=== PATIENT | female | born 1995 ===

== ENCOUNTER 2020-02-03 17:32 | Outpatient (REF) | payer OTHER, MEDICAID, SELFPAY | END 2020-02-03 17:33 | disposition home or self-care (01) | LOC: HO.LAB 17:32 | PROVIDERS: Visit Provider Internal Medicine | DX: Z20.828 Contact with and (suspected) exposure to other viral communicable diseases (principal) | CPT/HCPCS: C9803; U0003 ==

== ENCOUNTER 2020-03-09 09:27 | Outpatient (REF) | payer OTHER, SELFPAY | END 2020-03-09 09:28 | disposition home or self-care (01) | LOC: HO.LAB 09:27 | PROVIDERS: PCP Internal Medicine; Visit Provider Internal Medicine | DX: Z20.828 Contact with and (suspected) exposure to other viral communicable diseases (principal) | CPT/HCPCS: C9803; U0003 ==

== ENCOUNTER 2020-03-17 09:19 | Outpatient (REF) | payer OTHER, SELFPAY ==
--- NOTE | 2020-03-17 09:24 | XR_ITS ---
EXAMINATION: XR CHEST CLINICAL INFORMATION: R43.0 - Anosmia COMPARISON: Chest radiographs 08/22/2017, 03/19/2017 TECHNIQUE: 2 views of the chest were obtained. FINDINGS: The lungs are clear. There is no airspace consolidation or groundglass opacity or effusion. The costophrenic sulci are clear. The heart is normal in size. The hilar and mediastinal contours and bony structures are unremarkable. XR/XR chest 2V IMPRESSION: Unremarkable examination.
[2020-03-17 11:21] LABS: MANUAL DIFF FLAG NO
[2020-03-17 11:25] LABS: Basophils Percent Auto 0.2 % (0-2); Eosinophils Absolute Auto 0.1 X10*3/uL (0.0-0.4); Eosinophils Percent Auto 0.6 % (0-4); Hematocrit 40.8 % (37-47); Hemoglobin 12.8 g/dl (12.0-16.0); Imm Gran Abs Auto 0.07 X10*3/uL (0.00-0.03); Imm Gran Pct Auto 0.9 % (0.0-0.4); Lymphocytes Absolute Auto 2.4 X10*3/uL (1.2-4.9); Lymphocytes Percent Auto 28.9 % (20-40); Mean Corpuscular HGB Conc 31.4 g/dl (31.0-35.0); Mean Corpuscular Hemoglobin 26.3 pg (27.0-33.0); Mean Corpuscular Volume 83.8 fL (80-98); Mean Platelet Volume 11.4 fL (9.4-12.3); Monocytes Absolute Auto 0.5 X10*3/uL (0.1-1.2); Monocytes Percent Auto 6.4 % (2-11); Neutrophils Absolute Auto 5.1 X10*3/uL (2.0-8.3); Platelet Count 329 X10*3/uL (160-400); Red Blood Count 4.87 X10*6/uL (4.20-5.50); Red Cell Distribution Width 13.6 % (11.0-16.0); White Blood Count 8.1 X10*3/uL (4.8-10.8)
[2020-03-17 11:46] LABS: Alanine Aminotransferase 13 U/L (0-31); Albumin Level 3.9 g/dL (3.5-5.0); Alkaline Phosphatase 77 U/L (39-117); Anion Gap 12 (12-20); Aspartate Amino Transferase 12 U/L (5-31); Bilirubin Total 0.4 mg/dL (0.0-1.0); Blood Urea Nitrogen 14 mg/dL (9-16); Calcium 9.3 mg/dL (8.4-10.2); Carbon Dioxide 27 mmol/L (22-29); Chloride 103 mmol/L (96-108); Cholesterol 159 mg/dL; Estimated Glomerular Filt Rate > 60; Glucose Fasting 101 mg/dL (60-99); HDL Cholesterol 41 mg/dL; LDL Cholesterol Calculated 87 mg/dl; Potassium 4.5 mmol/l (3.3-5.1); Sodium 137 mmol/L (135-145); Total Protein 6.8 g/dL (6.5-8.0); Triglycerides 155 mg/dL
[2020-03-17 12:09] LABS: TSH reflex Free T4 1.23 mIU/mL (0.32-4.0); Vitamin D 25-OH Total 7.6 ng/mL (>30)
== END 2020-03-17 09:20 | disposition home or self-care (01) ==
LOC: HO.HMGCX 09:19
PROVIDERS: PCP Internal Medicine; Visit Provider Internal Medicine
DX: U07.1 COVID-19 (principal); R43.0 Anosmia; E55.9 Vitamin D deficiency, unspecified; R73.01 Impaired fasting glucose; E66.9 Obesity, unspecified; R19.7 Diarrhea, unspecified; J02.9 Acute pharyngitis, unspecified; J98.8 Other specified respiratory disorders
CPT/HCPCS: 36415; 71046; 80053; 80061; 82306; 84443; 85025; 85027

== ENCOUNTER → 2020-05-19 09:57 | Outpatient (BNVA) | payer OTHER, SELFPAY | PROVIDERS: PCP Internal Medicine; Visit Provider Advanced Practice Midwife | DX: N92.3 Ovulation bleeding (principal); E66.9 Obesity, unspecified | CPT/HCPCS: 99202 ==

== ENCOUNTER → 2021-03-14 15:18 | Outpatient (BNVA) | payer OTHER, SELFPAY | PROVIDERS: PCP Internal Medicine; Referring Provider Internal Medicine; Visit Provider Physician Assistant Surgical ==

== ENCOUNTER → 2021-04-04 08:45 | Outpatient (BNVA) | payer OTHER, SELFPAY | PROVIDERS: PCP Internal Medicine; Visit Provider Surgery ==

== ENCOUNTER 2021-10-05 11:01 | Outpatient (REF) | payer OTHER, SELFPAY ==
[2021-10-05 19:13] LABS: CT PCR NOT DETECTED (Not Detect.); NG PCR NOT DETECTED (Not Detect.)
[2021-10-06 12:45] LABS: BV Int Neg Control Negative (Negative); BV Int Pos Control Positive (Positive)
[2021-10-09 23:27] LABS: HPV mRNA E6/E7 rflx Not Detected (Not Detected)
== END 2021-10-05 11:02 | disposition home or self-care (01) ==
LOC: HO.LAB 11:01
PROVIDERS: Visit Provider Advanced Practice Midwife
DX: Z01.419 Encounter for gynecological examination (general) (routine) without abnormal findings (principal); Z11.3 Encounter for screening for infections with a predominantly sexual mode of transmission; Z11.51 Encounter for screening for human papillomavirus (HPV)
CPT/HCPCS: 87480; 87491; 87510; 87591; 87624; 87660; 88142

== ENCOUNTER → 2022-02-26 13:54 | Outpatient (BNVA) | payer OTHER, SELFPAY | PROVIDERS: PCP Internal Medicine; Visit Provider Physician Assistant Surgical | DX: E66.01 Morbid (severe) obesity due to excess calories (principal); Z68.42 Body mass index [BMI] 45.0-49.9, adult | CPT/HCPCS: 99212 ==

== ENCOUNTER 2022-02-27 12:40 | Outpatient (REF) | payer OTHER, SELFPAY ==
--- NOTE | ~2022-02-27 | XR_ITS ---
EXAMINATION: XR CHEST CLINICAL INFORMATION: Obesity COMPARISON: 03/17/2020 TECHNIQUE: 2 views of the chest were obtained. FINDINGS: No focal consolidation, pulmonary edema, or pleural effusion. Stable cardiomediastinal silhouette. XR/XR chest 2V IMPRESSION: Unremarkable examination.
--- NOTE | 2022-02-27 12:46 | ECG_ITS ---
Test Reason : e66.01 Blood Pressure : / mmHG Vent. Rate : 088 BPM Atrial Rate : 088 BPM P-R Int : 130 ms QRS Dur : 066 ms QT Int : 364 ms P-R-T Axes : 058 028 013 degrees QTc Int : 440 ms Normal sinus rhythm Normal ECG When compared with ECG of 19-MAR-2017 07:07, No significant change was found Referred By: Rafat Garcia Electronically Signed By:Dominic Salas
[2022-02-27 12:56] LABS: MANUAL DIFF FLAG NO
[2022-02-27 13:27] LABS: Basophils Percent Auto 0.3 % (0-2); Eosinophils Absolute Auto 0.1 X10*3/uL (0.0-0.4); Eosinophils Percent Auto 1.4 % (0-4); Hematocrit 38.4 % (37.0-47.0); Hemoglobin 12.2 g/dl (12.0-16.0); Imm Gran Abs Auto 0.05 X10*3/uL (0.00-0.03); Imm Gran Pct Auto 0.5 % (0.0-0.4); Lymphocytes Absolute Auto 1.9 X10*3/uL (1.2-4.9); Lymphocytes Percent Auto 20.9 % (20-40); Mean Corpuscular HGB Conc 31.8 g/dl (31.0-35.0); Mean Corpuscular Hemoglobin 25.9 pg (27.0-33.0); Mean Corpuscular Volume 81.5 fL (80.0-98.0); Mean Platelet Volume 11.2 fL (9.4-12.3); Monocytes Absolute Auto 0.6 X10*3/uL (0.1-1.2); Monocytes Percent Auto 6.6 % (2-11); Neutrophils Absolute Auto 6.5 x10*3/uL (2.0-8.3); Neutrophils Percent Auto 70.3 % (45-73); Platelet Count 340 X10*3/uL (160-400); Red Blood Count 4.71 X10*6/uL (4.20-5.50); Red Cell Distribution Width 13.7 % (11.0-16.0); White Blood Count 9.3 X10*3/uL (4.8-10.8)
[2022-02-27 15:31] LABS: Alanine Aminotransferase 9 U/L (0-31); Albumin Level 3.9 g/dL (3.5-5.0); Alkaline Phosphatase 73 U/L (39-117); Anion Gap 11 (12-20); Aspartate Amino Transferase 10 U/L (5-31); Bilirubin Total 0.5 mg/dL (0.0-1.0); Blood Urea Nitrogen 8 mg/dL (9-16); C Reactive Protein 4.57 mg/dL (< or = 0.50); Calcium 9.3 mg/dL (8.4-10.2); Carbon Dioxide 25 mmol/L (22-29); Chloride 107 mmol/L (96-108); Cholesterol 147 mg/dL; Estimated Glomerular Filt Rate > 60; Glucose Fasting 88 mg/dL (60-99); Glucose Random 88 mg/dL (60-115); HDL Cholesterol 36 mg/dL; Iron 38 mcg/dL (30-160); LDL Cholesterol Calculated 85 mg/dl; Percent Iron Saturation 15 % (15-50); Potassium 4.4 mmol/L (3.3-5.1); Sodium 139 mmol/L (135-145); Total Iron Binding Capacity 257 mcg/dL (228-428); Total Protein 6.8 g/dL (6.5-8.0); Triglycerides 130 mg/dL; Unsaturated Iron Binding 219 ug/dL; Vitamin D 25-OH Total 9.6 ng/mL (>30)
[2022-02-27 16:12] LABS: Estimated Average Glucose 120 mg/dL; Hemoglobin A1c % 5.8 %
[2022-02-27 16:49] LABS: Ferritin 47 ng/mL (10-122); Insulin 12 uU/mL (2-29); TSH reflex Free T4 0.65 uIU/mL (0.32-4.0); Vitamin D 25-OH Total 9.5 ng/mL (>30)
[2022-02-27 17:04] LABS: Folate 8.3 ng/mL (> or = 4.0); Vitamin B12 519 pg/mL (200-900)
[2022-03-01 17:47] LABS: Calcium (PTHI) 9.5 mg/dL (8.6-10.2); PTHI 85 pg/mL (16-77)
[2022-03-02 14:47] LABS: H Pylori Breath Test Negative (Negative)
[2022-03-02 17:29] LABS: Vitamin A 23 mcg/dL (38-98)
[2022-03-03 00:08] LABS: Zinc 66 mcg/dL (60-130)
[2022-03-12 05:09] LABS: Vitamin B1 <6 nmol/L (8-30)
== END 2022-02-27 12:41 | disposition home or self-care (01) ==
LOC: HO.XRAY 12:40
PROVIDERS: PCP Internal Medicine; Visit Provider Surgery
DX: E66.01 Morbid (severe) obesity due to excess calories (principal); R73.01 Impaired fasting glucose; E55.9 Vitamin D deficiency, unspecified; K21.9 Gastro-esophageal reflux disease without esophagitis; Z11.0 Encounter for screening for intestinal infectious diseases
CPT/HCPCS: 36415; 71046; 80053; 80061; 82306; 82607; 82728; 82746; 82947; 83013; 83036; 83525; 83540; 83970; 84425; 84443; 84590; 84630; 85025; 86140; 93005; 99211

== ENCOUNTER → 2022-03-16 15:04 | Outpatient (BNVA) | payer OTHER, SELFPAY | PROVIDERS: PCP Internal Medicine; Visit Provider Dietitian, Registered | DX: E66.01 Morbid (severe) obesity due to excess calories (principal); Z68.41 Body mass index [BMI] 40.0-44.9, adult | CPT/HCPCS: 97802 ==

== ENCOUNTER → 2022-03-21 15:25 | Outpatient (BNVA) | payer OTHER, SELFPAY | PROVIDERS: PCP Internal Medicine; Visit Provider Physician Assistant Surgical | DX: E66.01 Morbid (severe) obesity due to excess calories (principal) | CPT/HCPCS: 99212 ==

== ENCOUNTER → 2022-03-26 11:00 | Outpatient (BNVA) | payer OTHER, SELFPAY | PROVIDERS: PCP Internal Medicine; Visit Provider Counselor Mental Health | DX: F32.A Depression, unspecified (principal); E66.01 Morbid (severe) obesity due to excess calories | CPT/HCPCS: 90791 ==

== ENCOUNTER → 2022-05-24 13:35 | Outpatient (BNVA) | payer OTHER, SELFPAY | PROVIDERS: PCP Internal Medicine; Visit Provider Dietitian, Registered | DX: E66.01 Morbid (severe) obesity due to excess calories (principal); Z68.41 Body mass index [BMI] 40.0-44.9, adult; R73.01 Impaired fasting glucose; Z71.3 Dietary counseling and surveillance | CPT/HCPCS: 97803 ==

== ENCOUNTER 2023-03-30 07:34 | Emergency (ER) | payer OTHER, SELFPAY ==
--- NOTE | ~2023-03-30 | CT_ITS ---
EXAMINATION: CT abdomen pelvis w IV con CLINICAL INFORMATION: Reason for Exam RLQ abdominal pain, r/o acute appy COMPARISON: Prior CT scan 2018 TECHNIQUE: Multidetector volumetric imaging was performed from the superior aspect of the liver through the pubic symphysis 85 mL of Omnipaque 350 injected Sagittal and coronal reformatted images were obtained on the technologist's workstation. This CT examination was performed using dose optimization techniques as appropriate, variously including the following: *Automated exposure control *Adjustment of mA and/or kV according to patient size (this includes techniques or standardized protocols for targeted exams where dose is matched to indication/reason for exam; i.e. extremities or head) *Use of iterative reconstruction technique DLP: 860 mGy-cm FINDINGS: LOWER THORAX: Included lung bases are clear. HEPATOBILIARY: No focal hepatic lesions. No biliary ductal dilatation. GALLBLADDER: Gallbladder unremarkable. SPLEEN: Spleen is normal in size. PANCREAS: No focal mass or ductal dilatation. STOMACH AND GASTROINTESTINAL TRACT: Stomach is grossly unremarkable. There is no bowel distention or thickening. No CT evidence of appendicitis. ADRENALS: No adrenal nodules. KIDNEYS/URETERS: Mild right renal hydronephrosis and proximal hydroureter due to partially obstructing 3 mm stone found in the mid course right ureter image 58 series 6. Left kidney is normal. URINARY BLADDER: Partially decompressed. PELVIC VISCERA: Unremarkable PERITONEUM: No free air or fluid. LYMPH NODES: No lymphadenopathy. VASCULAR:Abdominal aorta normal in size, no aneurysm found. BONES, ABDOMINAL WALL AND SOFT TISSUES: Age-appropriate changes of the spine and skeletal system, no destructive osteolytic or osteosclerotic bone lesion found CT/CT abdomen pelvis w IV con IMPRESSION: 1. Mild right renal hydronephrosis and proximal hydroureter due to obstructing 3 mm stone found in the mid course right ureter. 2. No CT evidence of appendicitis.
--- NOTE | 2023-03-30 07:43 | ED.ABDPAIN ---
HPI - Abdominal Pain General Chief Complaint: Abdominal Pain Stated Complaint: r sided abd pain Time Seen by Provider: 03/30/23 07:39 Source: patient and family (fiance ) Mode of arrival: ambulatory Limitations: no limitations History of Present Illness HPI narrative: This is a 27-year-old female who is previously healthy who presents to the ER with complaints of waking with right-sided back pain which radiates to the right lower abdomen with 2 episodes of vomiting and diarrhea. No fevers, chills, urinary symptoms. Patient is currently on her menstrual cycle. Patient denies any history of abdominal surgery. Patient describes the pain as sharp and stabbing. Related Data Previous Rx's Medication Instructions Recorded cholecalciferol (vitamin D3) 125 125 mcg PO DAILY #90 caps 03/19/22 mcg (5,000 unit) capsule thiamine HCl (vitamin B1) 100 mg 100 mg PO DAILY #90 tabs 03/19/22 tablet vitamin A palmitate 3,000 mcg 10,000 unit PO DAILY #90 caps 03/19/22 (10,000 unit) capsule meloxicam 15 mg tablet 15 mg PO DAILY #14 tabs 07/09/22 ibuprofen 600 mg tablet 600 mg PO Q8H PRN pain #30 tabs 03/30/23 ondansetron 4 mg disintegrating 4 mg PO Q6H PRN nausea and 03/30/23 tablet vomiting #15 tabs oxycodone 5 mg tablet 5 mg PO Q8H PRN pain #6 tabs 03/30/23 tamsulosin 0.4 mg capsule (Flomax) 0.4 mg PO DAILY #14 caps 03/30/23 Allergies Allergy/AdvReac Type Severity Reaction Status Date / Time No Known Allergies Allergy Verified 03/30/23 07:46 Review of Systems Review of Systems Yes all other systems are reviewed and are negative Constitutional: Reports no additional constitutional complaints, Denies body ache(s), Denies chills, Denies fever(s), Denies headache(s) and Denies weakness Eyes: Reports no additional eye complaints and Denies change in vision Reports system reviewed and no additional complaints, except as documented, Denies dizziness, Denies headache(s), Denies nasal congestion, Denies nasal discharge and Denies neck pain Cardiovascular: Reports no additional cardiovascular complaints, Denies chest pain, Denies leg edema and Denies dyspnea Respiratory: Reports no additional respiratory complaints, Denies cough and Denies dyspnea Gastrointestinal: Reports no additional gastrointestinal complaints, Reports abdominal pain, Reports diarrhea, Reports nausea and Reports vomiting Genitourinary: Reports no additional female genitourinary complaints and Denies urinary incontinence Musculoskeletal: Reports no additional musculoskeletal complaints, Denies back pain, Denies arthralgias, Denies joint swelling, Denies neck pain, Denies numbness and Denies tingling Skin/Breast: Reports system reviewed and no additional complaints, except as docu and Denies rash Reports system reviewed and no additional complaints, except as documented, Denies Abnormal speech present, Denies dizziness, Denies headache(s), Denies numbness, Denies tingling and Denies weakness PMFSH Past Medical History Attestation statement: The following information was validated with the patient. Source: old records reviewed and nursing notes reviewed Onset Date is defined in the Problem List Problems that require an onset date and time if occurred within 24 hrs of arrival to the ED Aortic Dissection and Rupture; Neurologic impairment; Cardiopulmonary Arrest; Endotracheal Intubation; Insertion or Replacement of Mechanical Circulatory Assist Device Medical History Back pain Depression GERD (gastroesophageal reflux disease) Anxiety and depression Morbid obesity Anosmia Diarrhea Sore throat Respiratory tract infection due to COVID-19 virus Ovarian cyst Vitamin D deficiency Impaired fasting glucose History of migraine Obesity Surgical History H/O wisdom tooth extraction Family History Family History Father Diabetes mellitus Mother No problems noted. Brother No problems noted. Brother Multiple sclerosis Maternal Grandmother No problems noted. Maternal Grandfather No problems noted. Paternal Grandfather No problems noted. Paternal Grandmother No problems noted. Brother No problems noted. Social History Social History Housing: Apartment Alcohol intake: former Patient Tobacco Use Status: Never used Tobacco Smoked in Last 30 Days: No Use of substances other than those prescribed or required for medical reasons: No Substance Use Type: Marijuana Advance Directives: No Advance Directives Information Provided: No Patient : No service: No Current occupational status: employed Physical Exam ED Vital Signs: Vital Signs - 24 hr 03/30/23 07:46 03/30/23 10:34 Temperature 97.8 F 97.7 F Pulse Rate 88 61 Respiratory Rate 16 16 Blood Pressure 155/75 H 127/56 L Pulse Oximetry 99 100 Oxygen Delivery Method Room Air Room Air BMI result Body Mass Index 42.4 Const General: cooperative, healthy appearing, comfortable and no acute distress Orientation/consciousness: patient oriented x3 Limitations: no limitations HENMT Head: Yes normal to inspection Ears: hearing grossly normal bilaterally General nose exam: Normal external nose present Face and sinus: Yes normal facial exam Mouth: Normal oral and palatal mucosa present Throat: Yes posterior oropharynx normal Eyes General: appearance normal, both eyes and all related structures Pupils: Equal, round and reactive pupils present Neck Neck: Yes normal visual inspection Chest Chest palpation & inspection: normal inspection of the chest Resp Effort & Inspection: normal respiratory effort Auscultation: clear to auscultation bilaterally Cardio Rate: regular rate Rhythm: regular rhythm Peripheral pulses: Peripheral pulses 2+ throughout GI Inspection: Yes normal to inspection Palpation (GI): Soft to palpation, Tenderness to palpation present (GI) in the RLQ; with no rebound tenderness and no guarding Auscultation: normal bowel sounds General: Yes no CVA tenderness Back/Spine/Pelvis Back: no CVA tenderness Thoracic/Lumbar Spine: thoracic and lumbar spine normal to inspection Skin General skin exam: no rashes or lesions noted Neuro General: patient oriented x3, no focal motor deficits and normal sensation to monofilament Cranial nerves: Yes Equal, round and reactive pupils present Cognition (Neuro): normal cognition Speech: No Abnormal speech present Gait exam (Neuro): Normal gait present Motor exam (neuro): 5/5 motor strength present throughout Extrem General: Yes normal to inspection Course Course Course Narrative: 929-Ct shows-1. Mild right renal hydronephrosis and proximal hydroureter due to obstructing 3 mm stone found in the mid course right ureter. Patient is still having pain after receiving 4 mg of morphine. Will give Toradol IV and reassess. Reevaluation(s) Reevaluation #1: 1030-Pain well controlled now, tolerating PO. Plan for discharge home with urology f/u outpatient and strict return precautions. Medical Decision Making Medical Decision Making MDM Narrative: This is a 27-year-old female who is previously healthy who presents to the ER with complaints of waking with right-sided back pain which radiates to the right lower abdomen with 2 episodes of vomiting and diarrhea.? No fevers, chills, urinary symptoms.? Patient is currently on her menstrual cycle.? Patient denies any history of abdominal surgery.? Patient describes the pain as sharp and stabbing.? On exam TTP RLQ Will need labs, UA, COVID/influenza testing, CT A/P Will provide antiemetic, analgesia, IVF Differential Diagnosis Differential Diagnoses: The differential diagnosis associated with the presentation includes appendicitis, gastroenteritis, ovarian cyst Low concern for ovarian torsion, ectopic Admission/Observation Consideration of admission/observation: Escalation of care including admission/observation considered Pain is well controlled, tolerating p.o.. no need for admission and urgent urology consultation Lab Data [facility] Lab Attestation statement: I reviewed the patient's lab results. 03/30/23 08:10 03/30/23 08:32 Labs: Lab Results 03/30/23 03/30/23 Range/Units 08:10 08:32 WBC 8.1 (4.8-10.8) X10*3/uL RBC 4.81 (4.20-5.50) X10*6/uL Hgb 12.7 (12.0-16.0) g/dl Hct 39.5 (37.0-47.0) % MCV 82.1 (80.0-98.0) fL MCH 26.4 L (27.0-33.0) pg MCHC 32.2 (31.0-35.0) g/dl RDW 14.2 (11.0-16.0) % Plt Count 310 (160-400) X10*3/uL MPV 11.2 (9.4-12.3) fL Immature Gran % (Auto) 0.5 H (0.0-0.4) % Neut % (Auto) 77.5 H (45-73) % Lymph % (Auto) 15.5 L (20-40) % Upson % (Auto) 5.7 (2-11) % Eos % (Auto) 0.4 (0-4) % Baso % (Auto) 0.4 (0-2) % Lymph # (Auto) 1.3 (1.2-4.9) X10*3/uL Upson # (Auto) 0.5 (0.1-1.2) X10*3/uL Eos # (Auto) 0.0 (0.0-0.4) X10*3/uL Baso # (Auto) 0.0 (0.0-0.2) X10*3/uL Abs Immat Gran (auto) 0.04 H (0.00-0.03) X10*3/uL Absolute Neuts (auto) 6.3 (2.0-8.3) x10*3/uL Absolute Nucleated RBC 0.000 (0.0-0.012) X10*3/uL Nucleated RBC % (auto) 0.0 (0.0-0.2) /100WBC Sodium 139 (135-145) mmol/L Potassium 3.7 (3.3-5.1) mmol/L Chloride 109 H (96-108) mmol/L Carbon Dioxide 22 (22-29) mmol/L Anion Gap 12 (12-20) BUN 13 (9-16) mg/dL Creatinine 0.81 (0.5-1.4) mg/dL Estim Creat Clear Calc 125.5 Estimated GFR > 60 Random Glucose 134 H (60-115) mg/dL Calcium 9.3 (8.4-10.2) mg/dL Total Bilirubin 0.2 (0.0-1.0) mg/dL Direct Bilirubin < 0.2 (0.0-0.5) mg/dL AST 13 (5-31) U/L ALT 10 (0-31) U/L Alkaline Phosphatase 68 (39-117) U/L Total Protein 7.1 (6.5-8.0) g/dL Albumin 3.9 (3.5-5.0) g/dL Lipase 15 (8-78) U/L Urine Color RED Urine Appearance Cloudy Urine pH 6.0 (5.0-9.0) Ur Specific [place] >= 1.030 H (1.005-1.025) Urine Protein 100 (2+) H (Neg-Trace) mg/dL Urine Glucose (UA) Negative (Negative) mg/dL Urine Ketones Trace (Negative) mg/dL Urine Blood Large (3+) H (Negative) Urine Nitrite Negative (Negative) Ur Leukocyte Esterase Negative (Negative) Urine RBC >20 H (0-2) /HPF Urine WBC 0-5 (0-5) /HPF Ur Squamous Epith Cells 0-2 (0-2) /HPF Urine Bacteria Trace (None Seen) Hyaline Casts 0-2 (0-2) /LPF Urine Test NEGATIVE (NEGATIVE) COVID-19 (PATO) Negative (Negative) COVID-19 Clin Com See Note Influenza Type A (HONORIO) Negative (Negative) Influenza Type B (HONORIO) Negative (Negative) Influenza A & B Note See Note Independent Interpretation I performed an independent interpretation of an: CT Scan Interpretation: I independetely reviewed the CT scan and agree with the rad report Radiology Impression Discussion of test interpretation with radiology: I have reviewed the radiologist's reading. Radiologist Impression: [place] [id number] CT Scan Report Signed Patient: Reanna Mccullough MR#: [id number] : 1995 Acct:[id number] Age/Sex: 27 / F ADM Date: 03/30/23 Loc: .ED Attending Dr: Ordering Physician: Ema Menendez NP Date of Service: 03/30/23 Procedure(s): CT abdomen pelvis w IV con Accession Number(s): [id number] cc: Judi Morales MD; Ema Menendez NP~ EXAMINATION: CT abdomen pelvis w IV con CLINICAL INFORMATION: Reason for Exam RLQ abdominal pain, r/o acute appy COMPARISON: Prior CT scan 2018 TECHNIQUE: Multidetector volumetric imaging was performed from the superior aspect of the liver through the pubic symphysis 85 mL of Omnipaque 350 injected Sagittal and coronal reformatted images were obtained on the technologist's workstation. This CT examination was performed using dose optimization techniques as appropriate, variously including the following: *Automated exposure control *Adjustment of mA and/or kV according to patient size (this includes techniques or standardized protocols for targeted exams where dose is matched to indication/reason for exam; i.e. extremities or head) *Use of iterative reconstruction technique DLP: 860 mGy-cm FINDINGS: LOWER THORAX: Included lung bases are clear. HEPATOBILIARY: No focal hepatic lesions. No biliary ductal dilatation. GALLBLADDER: Gallbladder unremarkable. SPLEEN: Spleen is normal in size. PANCREAS: No focal mass or ductal dilatation. STOMACH AND GASTROINTESTINAL TRACT: Stomach is grossly unremarkable. There is no bowel distention or thickening. No CT evidence of appendicitis. ADRENALS: No adrenal nodules. KIDNEYS/URETERS: Mild right renal hydronephrosis and proximal hydroureter due to partially obstructing 3 mm stone found in the mid course right ureter image 58 series 6. Left kidney is normal. URINARY BLADDER: Partially decompressed. PELVIC VISCERA: Unremarkable PERITONEUM: No free air or fluid. LYMPH NODES: No lymphadenopathy. VASCULAR:Abdominal aorta normal in size, no aneurysm found. BONES, ABDOMINAL WALL AND SOFT TISSUES: Age-appropriate changes of the spine and skeletal system, no destructive osteolytic or osteosclerotic bone lesion found CT/CT abdomen pelvis w IV con IMPRESSION: 1. Mild right renal hydronephrosis and proximal hydroureter due to obstructing 3 mm stone found in the mid course right ureter. 2. No CT evidence of appendicitis. Independent Historian Clinical information obtained from an independent historian. History obtained from or confirmed by: Other Fiance Prescription Management I considered prescription management with: Pain Medication and Antibiotic Medications Administered Discontinued Medications Generic Name Dose Route Start Last Admin Trade Name Freq PRN Reason Stop Dose Admin Sodium Chloride 1,000 mls @ 999 mls/hr 03/30/23 07:51 03/30/23 10:02 Ns IV 03/30/23 08:51 Infused .Q1H1M STA Infusion Iohexol 100 ml 03/30/23 09:13 03/30/23 09:13 Iohexol 350 Mg/Ml 100 Ml Infus..Btl IV 03/30/23 09:14 85 ml ONCE ONE Administration Ketorolac Tromethamine 15 mg 03/30/23 09:24 03/30/23 09:31 Ketorolac Tromethamine 15 Mg/Ml Vial IVPUSH 03/30/23 09:25 15 mg ONCE ONE Administration Morphine Sulfate 4 mg 03/30/23 07:51 03/30/23 08:15 Morphine Sulfate 4 Mg/Ml Cartridge IVPUSH 03/30/23 07:52 4 mg ONCE ONE Administration Protocol Ondansetron HCl 4 mg 03/30/23 07:51 03/30/23 08:15 Ondansetron Hcl 4 Mg/2 Ml Vial IVPUSH 03/30/23 07:52 4 mg ONCE ONE Administration Discharge Plan Discharge Clinical Impression: Renal colic Patient Disposition: Home, Self-Care Instructions: Renal Colic (ED) Additional Instructions: Increase fluids at home Return for worsening pain, vomiting, fever Follow-up with urology as discussed Prescriptions: New ibuprofen 600 mg tablet 600 mg PO Q8H PRN (Reason: pain) Qty: 30 0RF tamsulosin [Flomax] 0.4 mg capsule 0.4 mg PO DAILY Qty: 14 0RF ondansetron 4 mg tablet,disintegrating 4 mg PO Q6H PRN (Reason: nausea and vomiting) Qty: 15 0RF oxycodone 5 mg tablet 5 mg PO Q8H PRN (Reason: pain) Qty: 6 0RF Rx Instructions: Partial Fill upon patient request. No Action meloxicam 15 mg tablet 15 mg PO DAILY Qty: 14 0RF cholecalciferol (vitamin D3) 125 mcg (5,000 unit) capsule 125 mcg PO DAILY Qty: 90 1RF thiamine HCl (vitamin B1) 100 mg tablet 100 mg PO DAILY Qty: 90 1RF vitamin A palmitate 10,000 unit capsule 10,000 unit PO DAILY Qty: 90 0RF Referrals: Hermilo Falk MD [Physician] - 1 week Stand Alone Forms: Work/School Release
[2023-03-30 07:46] VITALS: BP 155/75; PULSE 88; RESP 16; TEMP 36.6; O2SAT 99; BMI 42.4
--- NOTE | 2023-03-30 07:48 | PC.NURSE ---
a&ox4, vss and up to date besides being slightly hypertensive. pt presents to the ED w/ right sided flank pain that radiates to the right side of abdomen. tender upon palpation. pt also c/o new onset n/v/d. denies urinary sx/fever/chills. no sob/wob noted. respirations even and unlabored. partner bedside for support. pt being seen by ED provider at this time. call paige placed within reach.
[2023-03-30 08:15] LABS: MANUAL DIFF FLAG NO
[2023-03-30] MEDS: Morphine Sulfate 4 MG/ML CARTRIDGE IVPUSH (08:15)
[2023-03-30] MEDS: ondansetron HCL 4 MG/2 ML VIAL IVPUSH (08:15)
[2023-03-30] MEDS: 0.9 % Sodium Chloride 1,000 ML 999 ML IV (08:15)
--- NOTE | 2023-03-30 08:20 | PC.NURSE ---
20gIV placed in the right AC - labs/urine obtained/sent to lab. medications/IVF administered per provider order. pt awaits to go to CT at this time.
[2023-03-30 08:21] LABS: UPreg QC Valid YES; Urine Pregnancy NEGATIVE (NEGATIVE)
[2023-03-30 08:23] LABS: Basophils Percent Auto 0.4 % (0-2); Eosinophils Percent Auto 0.4 % (0-4); Hematocrit 39.5 % (37.0-47.0); Hemoglobin 12.7 g/dl (12.0-16.0); Imm Gran Abs Auto 0.04 X10*3/uL (0.00-0.03); Imm Gran Pct Auto 0.5 % (0.0-0.4); Lymphocytes Absolute Auto 1.3 X10*3/uL (1.2-4.9); Lymphocytes Percent Auto 15.5 % (20-40); Mean Corpuscular HGB Conc 32.2 g/dl (31.0-35.0); Mean Corpuscular Hemoglobin 26.4 pg (27.0-33.0); Mean Corpuscular Volume 82.1 fL (80.0-98.0); Mean Platelet Volume 11.2 fL (9.4-12.3); Monocytes Absolute Auto 0.5 X10*3/uL (0.1-1.2); Monocytes Percent Auto 5.7 % (2-11); Neutrophils Absolute Auto 6.3 x10*3/uL (2.0-8.3); Neutrophils Percent Auto 77.5 % (45-73); Platelet Count 310 X10*3/uL (160-400); Red Blood Count 4.81 X10*6/uL (4.20-5.50); Red Cell Distribution Width 14.2 % (11.0-16.0); White Blood Count 8.1 X10*3/uL (4.8-10.8)
[2023-03-30 08:44] LABS: Appearance Urine Cloudy; Color Urine RED; Glucose Urine UA Negative (Negative); Leukocyte Esterase Urine Negative (Negative); Nitrite Urine Negative (Negative); Specific Gravity - Urine >= 1.030 (1.005-1.025); UMIC TRIGGER UACC YES; Urine Blood Large (3+) (Negative); Urine Ketones Trace mg/dL (Negative); Urine Protein 100 (2+) mg/dL (Neg-Trace)
[2023-03-30 08:47] LABS: Bacteria Urine Trace (None Seen); COVID-19 Test Negative (Negative); Hyaline Casts Urine 0-2 /LPF (0-2); IDNOW Serial# 152EDE1D; IDNOW Serial# 9DB6401D; Influenza A Negative (Negative); Influenza B2 Negative (Negative); RBC Urine >20 /HPF (0-2); Squamous Epithelial Cell Urine 0-2 /HPF (0-2); WBC Urine 0-5 /HPF (0-5)
[2023-03-30 08:50] LABS: Alanine Aminotransferase 10 U/L (0-31); Albumin Level 3.9 g/dL (3.5-5.0); Alkaline Phosphatase 68 U/L (39-117); Anion Gap 12 (12-20); Aspartate Amino Transferase 13 U/L (5-31); Bilirubin Direct < 0.2 mg/dL (0.0-0.5); Bilirubin Total 0.2 mg/dL (0.0-1.0); Blood Urea Nitrogen 13 mg/dL (9-16); Calcium 9.3 mg/dL (8.4-10.2); Carbon Dioxide 22 mmol/L (22-29); Chloride 109 mmol/L (96-108); Creatinine Clr Calc Pharmacy 125.5; Estimated Glomerular Filt Rate > 60; Glucose Random 134 mg/dL (60-115); Lipase 15 U/L (8-78); Potassium 3.7 mmol/L (3.3-5.1); Sodium 139 mmol/L (135-145); Total Protein 7.1 g/dL (6.5-8.0)
--- NOTE | 2023-03-30 08:56 | PC.NURSE ---
pt verbalizing pain level decreased to a 6/10 post medication administration. resting comfortably w/ the lights dimmed at this time. call paige placed within reach.
--- NOTE | 2023-03-30 09:06 | PC.NURSE ---
pt to CT at this time.
[2023-03-30] MEDS: iohexoL 350 MG/ML 100 ML INFUS..BTL IV (09:13)
[2023-03-30] MEDS: Ketorolac Tromethamine 15 MG/ML VIAL IVPUSH (09:31)
--- NOTE | 2023-03-30 09:33 | PC.NURSE ---
pt verbalizing pain level increased. provider aware. medication administered per provider order. pt aware of results of CT/plan of care at this time.
[2023-03-30 10:34] VITALS: BP 127/56; PULSE 61; RESP 16; TEMP 36.5; O2SAT 100
== END 2023-03-30 10:45 | disposition home or self-care (01) ==
PROVIDERS: Nurse Practitioner Family; Emergency Provider Student in an Organized Health Care Education/Training Program; PCP Internal Medicine
DX: N13.2 Hydronephrosis with renal and ureteral calculous obstruction (principal); E66.9 Obesity, unspecified; Z68.41 Body mass index [BMI] 40.0-44.9, adult; Z79.899 Other long term (current) drug therapy
CPT/HCPCS: 74177; 80048; 80076; 81001; 81025; 83690; 85025; 87502; 87635; 96361; 96374; 96375; 99284; 99285; J1885; J2270; J2405; Q9967

== ENCOUNTER 2023-04-01 06:11 | Emergency (ER) | payer OTHER, SELFPAY ==
--- NOTE | ~2023-04-01 | US_ITS ---
EXAMINATION: US PELVIS LIMITED (BLADDER) CLINICAL INFORMATION: Right-sided flank pain. Right ureteral stone on CT abdomen pelvis 2 days ago. COMPARISON: CT abdomen pelvis 03/30/2023. TECHNIQUE: Real-time imaging of the bladder. FINDINGS: BLADDER: Well distended and normal. No bladder calculi are seen. Bilateral ureteral jets are demonstrated. Prevoid bladder volume is 230 mL. Postvoid bladder volume is 22 mL. US/US bladder IMPRESSION: Normal-appearing bladder. No bladder calculi are seen.
--- NOTE | ~2023-04-01 | US_ITS ---
EXAMINATION: US ABDOMEN LIMITED CLINICAL INFORMATION: Right upper quadrant and right flank pain. COMPARISON: CT abdomen pelvis 03/30/2023 TECHNIQUE: Real-time imaging of the right upper quadrant abdominal viscera. FINDINGS: PANCREAS: The visualized portions of the pancreas are unremarkable but a large portion of the gland is obscured by bowel gas. LIVER: The liver is normal in size. The liver contour is normal. Parenchymal echogenicity is normal. No focal hepatic lesion. There is no intrahepatic biliary duct dilatation seen. GALLBLADDER: The gallbladder is physiologically distended without evidence of stones, sludge, polyps, wall thickening or pericholecystic fluid. COMMON BILE DUCT: Normal in caliber measuring 0.2 cm in diameter. RIGHT KIDNEY: There is some minimal fullness in the right renal collecting system similar to that seen at the time of the CT scan from 2 days ago. No renal calculi or focal parenchymal lesions. The previously seen obstructing mid ureteral calculus is not imaged on this exam. The kidney measures 10.8 cm in maximum dimension. FREE FLUID: None. US/US abdomen limited IMPRESSION: Minimal fullness in the right renal collecting system similar to that seen at the time of the recent CT scan.
[2023-04-01 06:22] VITALS: BP 127/74; PULSE 65; RESP 16; TEMP 36.6; O2SAT 99; BMI 41.8
[2023-04-01 06:45] LABS: MANUAL DIFF FLAG NO
[2023-04-01 06:56] LABS: Basophils Percent Auto 0.3 % (0-2); Eosinophils Absolute Auto 0.1 X10*3/uL (0.0-0.4); Eosinophils Percent Auto 1.4 % (0-4); Hematocrit 39.1 % (37.0-47.0); Hemoglobin 12.5 g/dl (12.0-16.0); Imm Gran Abs Auto 0.04 X10*3/uL (0.00-0.03); Imm Gran Pct Auto 0.6 % (0.0-0.4); Lymphocytes Absolute Auto 1.4 X10*3/uL (1.2-4.9); Lymphocytes Percent Auto 20.2 % (20-40); Mean Corpuscular Hemoglobin 26.5 pg (27.0-33.0); Mean Platelet Volume 11.2 fL (9.4-12.3); Monocytes Absolute Auto 0.5 X10*3/uL (0.1-1.2); Monocytes Percent Auto 7.1 % (2-11); Neutrophils Absolute Auto 4.9 x10*3/uL (2.0-8.3); Neutrophils Percent Auto 70.4 % (45-73); Platelet Count 286 X10*3/uL (160-400); Red Blood Count 4.71 X10*6/uL (4.20-5.50); Red Cell Distribution Width 14.2 % (11.0-16.0)
[2023-04-01 06:57] LABS: UPreg QC Valid YES; Urine Pregnancy NEGATIVE (NEGATIVE)
[2023-04-01] MEDS: Ketorolac Tromethamine 15 MG/ML VIAL IVPUSH ×2 (06:59→11:18)
[2023-04-01] MEDS: 0.9 % Sodium Chloride 1,000 ML 999 ML IV (06:59)
--- NOTE | 2023-04-01 07:02 | ED.FEMALEGU ---
HPI - Female Genitourinary General Chief complaint: Urogenital-Female Stated complaint: R back pain into abd Time Seen by Provider: 04/01/23 06:32 Source: patient, RN notes reviewed and old records reviewed Mode of arrival: ambulatory History of Present Illness HPI Narrative: 27-year-old female with past medical history 3mm obstructing proximal right ureter stone diagnosed in our ED on 03/30/2023, presenting to the ED today complaining of continued intermittent right flank pain radiating to right abdomen with associated dysuria, nausea, and emesis x2 this morning. Admits symptoms are worse than previous presentation to the ED. denies fever, chills, hematuria. Reports compliance with prescribed medications Related Data Previous Rx's Medication Instructions Recorded cholecalciferol (vitamin D3) 125 125 mcg PO DAILY #90 caps 03/19/22 mcg (5,000 unit) capsule thiamine HCl (vitamin B1) 100 mg 100 mg PO DAILY #90 tabs 03/19/22 tablet vitamin A palmitate 3,000 mcg 10,000 unit PO DAILY #90 caps 03/19/22 (10,000 unit) capsule meloxicam 15 mg tablet 15 mg PO DAILY #14 tabs 07/09/22 ibuprofen 600 mg tablet 600 mg PO Q8H PRN pain #30 tabs 03/30/23 ondansetron 4 mg disintegrating 4 mg PO Q6H PRN nausea and 03/30/23 tablet vomiting #15 tabs oxycodone 5 mg tablet 5 mg PO Q8H PRN pain #6 tabs 03/30/23 tamsulosin 0.4 mg capsule (Flomax) 0.4 mg PO DAILY #14 caps 03/30/23 prednisone 20 mg tablet 20 mg PO DAILY 5 days #5 tabs 04/01/23 Allergies Allergy/AdvReac Type Severity Reaction Status Date / Time No Known Allergies Allergy Verified 03/30/23 07:46 Review of Systems Review of Systems: Constitutional: No Fever, No Chills ENT/Mouth: No Ear Pain, No Nasal Congestion, No sore throat, No Rhinorrhea, No Swallowing Difficulty Cardiovascular: No Chest Pain, No SOB Respiratory: No Cough, No Sputum Gastrointestinal: +Nausea, + Vomiting, No Diarrhea, No Constipation, + Abdominal pain Genitourinary: + Dysuria, No Urinary Frequency, No Hematuria, No Urinary Incontinence/retention, No Urgency, No Flank Pain Musculoskeletal: No joint pain, No Myalgias, No Joint Swelling Skin: No Skin Lesions, No rash Neuro: No Weakness Yes all other systems are reviewed and are negative Constitutional: Constitutional: Reports as per [facility] Past Medical History Attestation statement: The following information was validated with the patient. Source: old records reviewed Onset Date is defined in the Problem List Problems that require an onset date and time if occurred within 24 hrs of arrival to the ED Aortic Dissection and Rupture; Neurologic impairment; Cardiopulmonary Arrest; Endotracheal Intubation; Insertion or Replacement of Mechanical Circulatory Assist Device Medical History Back pain Depression GERD (gastroesophageal reflux disease) Anxiety and depression Morbid obesity Anosmia Diarrhea Sore throat Respiratory tract infection due to COVID-19 virus Ovarian cyst Vitamin D deficiency Impaired fasting glucose History of migraine Obesity Surgical History H/O wisdom tooth extraction Family History Family History Father Diabetes mellitus Mother No problems noted. Brother No problems noted. Brother Multiple sclerosis Maternal Grandmother No problems noted. Maternal Grandfather No problems noted. Paternal Grandfather No problems noted. Paternal Grandmother No problems noted. Brother No problems noted. Social History Social History Housing: Apartment Alcohol intake: former Patient Tobacco Use Status: Never used Tobacco Smoked in Last 30 Days: No Use of substances other than those prescribed or required for medical reasons: Yes Substance Use Type: Marijuana Substance Use Frequency: Weekly Advance Directives: No Advance Directives Information Provided: Yes Patient : No service: No Current occupational status: employed Physical Exam Vital Signs: Vital Signs: Last Vital Signs Temp 97.8 F 04/01/23 06:22 Pulse 75 04/01/23 11:18 Resp 18 04/01/23 11:18 BP 129/76 04/01/23 11:18 Pulse Ox 98 04/01/23 11:18 O2 Del Method Room Air 04/01/23 11:18 BMI result Body Mass Index 41.8 Const: General: cooperative, healthy appearing and no acute distress Orientation/consciousness: patient oriented x3 Limitations: no limitations HEENT: Head: Yes normal to inspection and Yes atraumatic Ears: hearing grossly normal bilaterally General nose exam: Normal external nose present Face and sinus: Yes normal facial exam Eyes: General: appearance normal, both eyes and all related structures EOM: EOMs intact bilaterally Neck: Neck: Yes normal visual inspection and Yes no meningeal signs Resp: Effort & Inspection: normal respiratory effort and no respiratory distress Cardio: Rate: regular rate GI: Inspection: Yes normal to inspection Palpation (GI): Soft to palpation, Tenderness to palpation present (GI) in the epigastrum and in the RUQ; with no rebound tenderness, no guarding and not rigid : General: Yes CVA tenderness on the right Back/Spine/Pelvis: Back: CVA tenderness Skin: Rashes: no rashes Wounds: no wounds Neuro: General: patient oriented x3, tone normal and no meningeal signs Cranial nerves: Yes CN's II-XII intact bilaterally Gait exam (Neuro): Normal gait present Extrem: General: Yes normal to inspection Course Course Course Narrative: -0854--labs reassuring. UA with rbc's and wbc's however contaminated > will hold on antibiotic treatment at this time until culture results US bladder IMPRESSION: Normal-appearing bladder. No bladder calculi are seen. US abdomen limited IMPRESSION: Minimal fullness in the right renal collecting system similar to that seen at the time of the recent CT scan. > On re-eval patient reports symptomatic improvement. Will consult Urology, Dr. Falk as this is patients 2nd visit >>0924--patient is tolerating p.o. in the ED. Case discussed with Dr. Falk, patient can follow-up outpatient for further management, stone likely passing, recommended adding prednisone to outpatient regimen -1004--on re-evaluation on attempted discharge patient reports pain is recurring, additional IV Toradol/IV Zofran ordered -on re-evaluation patient reports symptomatic improvement, feels comfortable with plan for discharge Results discussed with patient including worrisome signs and symptoms and strict return precautions, and when to return to the emergency department. They verbalized understanding and feel safe for discharge at this time. Medications Administered Discontinued Medications Generic Name Dose Route Start Last Admin Trade Name Freq PRN Reason Stop Dose Admin Sodium Chloride 1,000 mls @ 999 mls/hr 04/01/23 07:00 04/01/23 09:47 Ns IV 04/01/23 08:00 Infused .Q1H1M ANI Infusion Ketorolac Tromethamine 15 mg 04/01/23 06:46 04/01/23 06:59 Ketorolac Tromethamine 15 Mg/Ml Vial IVPUSH 04/01/23 06:47 15 mg ONCE ONE Administration Ketorolac Tromethamine 15 mg 04/01/23 09:54 04/01/23 11:18 Ketorolac Tromethamine 15 Mg/Ml Vial IVPUSH 04/01/23 09:55 15 mg ONCE ONE Administration Ondansetron HCl 4 mg 04/01/23 09:54 04/01/23 11:18 Ondansetron Hcl 4 Mg/2 Ml Vial IVPUSH 04/01/23 09:55 4 mg ONCE ONE Administration Medical Decision Making Medical Decision Making MDM Narrative: 27-year-old female with past medical history 3mm obstructing proximal right ureter stone diagnosed in our ED on 03/30/2023, presenting to the ED today complaining of continued intermittent right flank pain radiating to right abdomen with associated dysuria, nausea, and emesis x2 this morning. On exam vital signs stable, NAD, nontoxic appearing, abdomen soft with RUQ/epigastric and R CVAT. No rebound or guarding. Concern for continued obstructing renal stone vs renal colic vs JOCELYNE vs UTI vs cholecystitis/cholelithiasis or pancreatitis. Lower suspicion for appendicitis/diverticulitis Plan: Labs, UA, ultrasound, IVF, pain control, re-evaluate Please refer to course for remaining clinical decision making, interpretation of labs/imaging results, and discussions with consultants and/or family members. Differential Diagnosis Differential Diagnoses: The differential diagnosis associated with the presentation includes As above Admission/Observation Consideration of admission/observation: Escalation of care including admission/observation considered Consult Healthcare Provider Management of the patient was discussed with: Tower Hand (Urology) Lab Data [facility] Lab Attestation statement: I reviewed the patient's lab results. 04/01/23 06:41 04/01/23 06:41 Labs: Lab Results 04/01/23 04/01/23 Range/Units 06:40 06:41 WBC 7.0 (4.8-10.8) X10*3/uL RBC 4.71 (4.20-5.50) X10*6/uL Hgb 12.5 (12.0-16.0) g/dl Hct 39.1 (37.0-47.0) % MCV 83.0 (80.0-98.0) fL MCH 26.5 L (27.0-33.0) pg MCHC 32.0 (31.0-35.0) g/dl RDW 14.2 (11.0-16.0) % Plt Count 286 (160-400) X10*3/uL MPV 11.2 (9.4-12.3) fL Immature Gran % (Auto) 0.6 H (0.0-0.4) % Neut % (Auto) 70.4 (45-73) % Lymph % (Auto) 20.2 (20-40) % Hood % (Auto) 7.1 (2-11) % Eos % (Auto) 1.4 (0-4) % Baso % (Auto) 0.3 (0-2) % Lymph # (Auto) 1.4 (1.2-4.9) X10*3/uL Hood # (Auto) 0.5 (0.1-1.2) X10*3/uL Eos # (Auto) 0.1 (0.0-0.4) X10*3/uL Baso # (Auto) 0.0 (0.0-0.2) X10*3/uL Abs Immat Gran (auto) 0.04 H (0.00-0.03) X10*3/uL Absolute Neuts (auto) 4.9 (2.0-8.3) x10*3/uL Absolute Nucleated RBC 0.000 (0.0-0.012) X10*3/uL Nucleated RBC % (auto) 0.0 (0.0-0.2) /100WBC Sodium 140 (135-145) mmol/L Potassium 3.4 (3.3-5.1) mmol/L Chloride 109 H (96-108) mmol/L Carbon Dioxide 25 (22-29) mmol/L Anion Gap 9 L (12-20) BUN 8 L (9-16) mg/dL Creatinine 0.85 (0.5-1.4) mg/dL Estim Creat Clear Calc 118.7 Estimated GFR > 60 Random Glucose 117 H (60-115) mg/dL Calcium 9.0 (8.4-10.2) mg/dL Magnesium 1.8 (1.6-2.6) mg/dL Total Bilirubin 0.3 (0.0-1.0) mg/dL AST 12 (5-31) U/L ALT 10 (0-31) U/L Alkaline Phosphatase 67 (39-117) U/L Total Protein 6.7 (6.5-8.0) g/dL Albumin 3.6 (3.5-5.0) g/dL Lipase 14 (8-78) U/L Urine Color Yellow Urine Appearance Clear Urine pH 5.5 (5.0-9.0) Ur Specific [place] 1.020 (1.005-1.025) Urine Protein Negative (Neg-Trace) mg/dL Urine Glucose (UA) Negative (Negative) mg/dL Urine Ketones Negative (Negative) mg/dL Urine Blood Large (3+) H (Negative) Urine Nitrite Negative (Negative) Ur Leukocyte Esterase Trace H (Negative) Urine RBC >20 H (0-2) /HPF Urine WBC 6-10 H (0-5) /HPF Ur Squamous Epith Cells 6-10 (0-2) /HPF Urine Bacteria None Seen (None Seen) Hyaline Casts 0-2 (0-2) /LPF Urine Test NEGATIVE (NEGATIVE) Independent Interpretation I performed an independent interpretation of an: Ultrasound Radiology Impression Discussion of test interpretation with radiology: I have reviewed the radiologist's reading. External Record Review External record reviewed: Inpatient record, Office record, Outpatient record, Prior outpatient labs, Prior outpatient radiology, Primary care record and Outside ED record Tests considered The following testing was considered but not selected: As above Prescription Management I considered prescription management with: Pain Medication Chronic Conditions Patient?s care impacted by: Other Discharge Plan Discharge Clinical Impression: Renal colic Patient Disposition: Home, Self-Care Instructions: Renal Colic (ED) Additional Instructions: Your blood work and urine were reassuring. Your ultrasound shows some backflow of urine anterior right kidney as previously seen on CT CONTINUE TAKING PREVIOUSLY PRESCRIBED MEDICATIONS. IN ADDITION START TAKING PREDNISONE Please call urology today for close follow-up If symptoms persist or worsen, pain is unbearable, persistent nausea/vomiting, fever, or you are unable to urinate return to the ED immediately Prescriptions: New prednisone 20 mg tablet 20 mg PO DAILY 5 Days Qty: 5 0RF No Action ibuprofen 600 mg tablet 600 mg PO Q8H PRN (Reason: pain) Qty: 30 0RF tamsulosin [Flomax] 0.4 mg capsule 0.4 mg PO DAILY Qty: 14 0RF ondansetron 4 mg tablet,disintegrating 4 mg PO Q6H PRN (Reason: nausea and vomiting) Qty: 15 0RF oxycodone 5 mg tablet 5 mg PO Q8H PRN (Reason: pain) Qty: 6 0RF Rx Instructions: Partial Fill upon patient request. meloxicam 15 mg tablet 15 mg PO DAILY Qty: 14 0RF cholecalciferol (vitamin D3) 125 mcg (5,000 unit) capsule 125 mcg PO DAILY Qty: 90 1RF thiamine HCl (vitamin B1) 100 mg tablet 100 mg PO DAILY Qty: 90 1RF vitamin A palmitate 10,000 unit capsule 10,000 unit PO DAILY Qty: 90 0RF Referrals: [facility] [place] [facility] [Provider Group] - 2 days (Call today to make an appointment)
[2023-04-01 07:04] LABS: Appearance Urine Clear; Color Urine Yellow; Glucose Urine UA Negative (Negative); Leukocyte Esterase Urine Trace (Negative); Nitrite Urine Negative (Negative); PH 5.5 (5.0-9.0); UMIC TRIGGER UACC YES; Urine Blood Large (3+) (Negative); Urine Ketones Negative (Negative); Urine Protein Negative (Neg-Trace)
[2023-04-01 07:05] LABS: Alanine Aminotransferase 10 U/L (0-31); Albumin Level 3.6 g/dL (3.5-5.0); Alkaline Phosphatase 67 U/L (39-117); Anion Gap 9 (12-20); Aspartate Amino Transferase 12 U/L (5-31); Bilirubin Total 0.3 mg/dL (0.0-1.0); Blood Urea Nitrogen 8 mg/dL (9-16); Carbon Dioxide 25 mmol/L (22-29); Chloride 109 mmol/L (96-108); Creatinine Clr Calc Pharmacy 118.7; Estimated Glomerular Filt Rate > 60; Glucose Random 117 mg/dL (60-115); Lipase 14 U/L (8-78); Magnesium 1.8 mg/dL (1.6-2.6); Potassium 3.4 mmol/L (3.3-5.1); Sodium 140 mmol/L (135-145); Total Protein 6.7 g/dL (6.5-8.0)
[2023-04-01 07:09] LABS: Bacteria Urine None Seen (None Seen); Hyaline Casts Urine 0-2 /LPF (0-2); RBC Urine >20 /HPF (0-2); UACC Culture Trigger YES
--- NOTE | 2023-04-01 07:18 | PC.NURSE ---
Resumed care of patient, IVF started and patient medicated per MAR. She is resting comfortably at this time, pt reporting 10/10 pain with intermit nausea. She is a/ox4. All needs met at this time, awaiting further imaging at this time
[2023-04-01 11:18] VITALS: BP 129/76; PULSE 75; RESP 18; O2SAT 98
[2023-04-01] MEDS: ondansetron HCL 4 MG/2 ML VIAL IVPUSH (11:18)
--- NOTE | 2023-04-01 11:20 | PC.NURSE ---
this RN resumed care of pt at this time. vss and up to date. pt still verbalizing 10/18 r flank/abd pain - medication administered per provider order. pt speaking w/ ED provider at this time. pt aware of plan of care going forward. call paige placed within reach.
[2023-04-01 12:22] VITALS: BP 117/58; PULSE 57; RESP 16; O2SAT 97
== END 2023-04-01 12:22 | disposition home or self-care (01) ==
PROVIDERS: Physician Assistant; Student in an Organized Health Care Education/Training Program; Emergency Provider Emergency Medicine; PCP Internal Medicine
DX: N23 Unspecified renal colic (principal)
CPT/HCPCS: 36415; 76705; 76857; 80053; 81001; 81003; 81025; 83690; 83735; 85025; 87086; 96361; 96374; 96375; 96376; 99284; 99285; J1885; J2405

== ENCOUNTER 2023-04-04 13:30 | Outpatient (AMB) | payer OTHER, SELFPAY ==
--- NOTE | 2023-04-04 13:56 | A.OFFVIS_ITS ---
Intake Intake Visit Reasons: stent placement Intake Note: Patient is Present for Cystoscopy/ Stent Placement Urology Med: Tamsulosin Antibiotic Allergy: None Blood Thinner: None URO- G Disposable Cystoscope lot: [id number] exp:08/22/2024 Patient states she has never had kidney stones in past. Her mother has history of stones. States this had began on Saturday. She went to the ER twice over the weekend due to discomfort Allergies No Known Allergies Allergy (Verified 03/30/23 07:46) HPI HPI Comments History of Present Illness Details Reanna is a pleasant female. She is a patient of Dr. Morales. She is seen for following urologic conditions - nephrolithiasis Here in office for attempted stent placement Wire able to be placed without difficulty Unable to place stent of wire Plan for operative intervention Nephrolithiasis Multiple presentation to emergency room - persistent nausea with pain control First-time stone former Imaging - 04/03 CT Mild right renal hydronephrosi s and proximal hydroureter due to partially obstructing 3 mm stone found in the mid course right ureter Plan for intervention right side [facility] Medical History Back pain Depression GERD (gastroesophageal reflux disease) Anxiety and depression Morbid obesity Anosmia Diarrhea Sore throat Respiratory tract infection due to COVID-19 virus Ovarian cyst Vitamin D deficiency Impaired fasting glucose History of migraine Obesity Surgical History H/O wisdom tooth extraction Family History Father Diabetes mellitus Mother No problems noted. Brother No problems noted. Brother Multiple sclerosis Maternal Grandmother No problems noted. Maternal Grandfather No problems noted. Paternal Grandfather No problems noted. Paternal Grandmother No problems noted. Brother No problems noted. Social History Housing: Apartment Alcohol intake: former Patient Tobacco Use Status: Never used Tobacco Substance Use Type: Marijuana service: No Current occupational status: employed Female Reproductive History Menstrual Age of Menarche: 8 Office Procedures Cystoscopy Consent Discussed risk and benefit or proposed procedure with the patient. Information consent for procedure given to the patient. Discussed technical aspects, risks, benefits and alternatives in full. Addressed all of the patient's questions and concerns regarding the procedure. The patient demonstrated knowledge and understanding. They wish to proceed with this procedure. Preparation The patient was prepped in the usual manner. A gray tender was present and in the room. Genitalia was prepped with betadine solution in a sterile manner. Lidocaine Jelly 2% was placed into the urethra and 16Fr flexible Olympus cystoscope was inserted into the meatus after adequate lubrication. Procedure A well lubricated 16 Welsh cystoscope was placed per urethra No abnormality noted of urethra during placement Ureteric orifice seen in normal position Right ureteric orifice cannulated with Glidewire Attempt made to place cook multi variable stent Unable to place stent Plan for operative intervention [id number] with insertion of indwelling ureteral stent DISPOSABLE SCOPE URO-G FLEXIBLE SCOPE Procedure code (CPT) selection complete Office Meds lidocaine HCl 2 % mucosal jelly in applicator Performing Provider: Hermilo Falk MD [place] [facility] [place] [facility] Administered by: Marleny Smiley RN on 04/04/23 14:08 Dose Route Admin Location Dispensed Lot Number Expiration Date NDC Digital Account Executive 10 mL intra-urethral 20 mL nitrofurantoin monohydrate/macrocrystals 100 mg capsule Performing Provider: Hermilo Falk MD Performing Location[place] [facility] [place] [facility] Administered by: Marleny Smiley RN on 04/04/23 14:08 Dose Route Admin Location Dispensed Lot Number Expiration Date NDC Digital Account Executive 100 mg PO 1 cap naproxen 500 mg tablet Performing Provider: Hermilo Falk MD Performing Location: [facility] [place] [facility] Administered by: Marleny Smiley RN on 04/04/23 14:08 Dose Route Admin Location Dispensed Lot Number Expiration Date NDC Digital Account Executive 500 mg PO 1 tab Results AMB Urinalysis, Automated UA Leukoctes 0 Madina/uL Last Edit by DARLING Hopper on 04/04/23 14:07 UA Nitrite Negative Last Edit by DARLING Hopper on 04/04/23 14:07 UA Urobilinogen 0.2 mg/dL Last Edit by DARLING Hopper on 04/04/23 14:0 7 UA Protein 15 mg/dL Last Edit by DARLING Hopper on 04/04/23 14:07 UA pH 6.0 Last Edit by Macy Mauro, RMA on 04/04/23 14:07 UA Blood 25 Marc/uL Last Edit by Macy Mauro, RMA on 04/04/23 14:07 UA Specific [place] 1.020 Last Edit by Macy Mauro, RMA on 04/04/23 14: 07 UA Ketone Negative Last Edit by Macy Mauro, RMA on 04/04/23 14:07 UA Bilirubin 0 mg/dL Last Edit by Macy Mauro, RMA on 04/04/23 14:07 UA Glucose 0 mg/dL Last Edit by Macy Mauro, A on 04/04/23 14:07 Results Reviewed Results Reviewed: Laboratory Last Values Urine pH (Auto) 6.0 04/04/23 14:02 Specific [place] (Auto) 1.020 04/04/23 14:02 Urine Protein (Auto) 15 mg/dL 04/04/23 14:02 Glucose (UA)(Auto) 0 mg/dL 04/04/23 14:02 Urine Ketones (Auto) Negative 04/04/23 14:02 Urine Blood (Auto) 25 Marc/uL 04/04/23 14:02 Urine Nitrite (Auto) Negative 04/04/23 14:02 Urine Bilirubin (Auto) 0 mg/dL 04/04/23 14:02 Urine Urobilinogen (Auto) 0.2 mg/dL 04/04/23 14:02 Leukocyte Esterase (Auto) 0 Madina/uL 04/04/23 14:02 Assessment & Plan Assessment & Plan (1) Nephrolithiasis: Code(s): N20.0 - Calculus of kidney Plan Ureteroscopy We discussed the nature of the decision and reasonable alternatives for performing ureteroscopy. Options such as medical therapy were discussed. Interventions include chemical dissolution, ESWL, ureteroscopy with laser lithotripsy and stent placement, PCNL. The relative uncertainties and benefits related to each alternate procedure were adequately discussed. General surgical risks including, but not limited to - pain, bleeding, infection, myocardial infarction, pulmonary embolus, deep vein thrombosis and cerebrovascular accident which may result in further hospitalization were discussed. Full disclosure of the procedure as well as all major risks, benefits and complications were discussed including but not limited to damage to the urethra, bladder and kidney infection, damage to the ureter, stent migration or malposition, scarring to the renal pelvis, remnant stone fragments, subsequent stone passage with need for secondary procedures. The overall secondary procedure rate is approximately 10-15%. The overall clearance rate is approximately 90-95%. Success of the procedure in the short-term does not necessarily guarantee that long-term success will be maintained. Suitable follow up will need to be maintained. The patient showed understanding of discussion and wishes to proceed with - cystoscopy, retrograde, ureteroscopy, possible lithotripsy/stone basketing and stent on the right side Orders: Orders AMB Urinalysis Automated 04/04/23 Z13.9 - Encounter for screening, unspecified AMB Cystoscopy 04/04/23 N20.0 - Calculus of kidney Patient Instructions: Imaging studies, laboratory and physical exam results were discussed and reviewed in detail. No major barriers to patient understanding were identified. An opportunity to ask questions regarding the treatment plan was provided. All questions were answered. The patient expressed understanding and agreement with the above treatment plan. The patient is aware they should contact our office by phone for worsening of their current condition or the appearance of new urologic symptoms. Compliance is encouraged with any medications and followup testing that is ordered. It is a privilege to participate in the urologic care of your patient. If you have any questions or concerns regarding treatment for the above conditions, or other urologic issues, please do not hesitate to contact me. The office telephone contact is [phone]. This note is constructed using voice recognition software. While every effort has been made to ensure accuracy clinic md associate errors may have been included. Yours sincerely, Dr Hermilo Falk MD, [facility] - Urology Providers of Expert, Compassionate Care for the Genitourinary System Coding Level of Care Code Est Pt Level 3 (44447) Diagnoses Nephrolithiasis N20.0 CPT Codes Cystoscopy - CPT: 66279-[id number] with insertion of indwelling ureteral stent ([id number])
== END 2023-04-04 15:07 | disposition home or self-care (01) ==
PROVIDERS: PCP Internal Medicine; Visit Provider Urology
DX: N20.0 Calculus of kidney (principal); Z13.9 Encounter for screening, unspecified
CPT/HCPCS: 52332; 99213

== ENCOUNTER → 2023-04-04 13:30 | Outpatient (BNVA) | payer OTHER, SELFPAY | PROVIDERS: PCP Internal Medicine; Visit Provider Urology | DX: N20.0 Calculus of kidney (principal) | CPT/HCPCS: 52332; 81003; 99212 ==

== ENCOUNTER 2023-04-05 14:55 | Day surgery (SDC) | payer OTHER, SELFPAY ==
[2023-04-05] VITALS (9 sets, daily range): BP systolic 139–151; BP diastolic 78–94; PULSE 52–86; RESP 16–21; TEMP 36.1–36.5; O2SAT 98–100; BMI 43.6
--- NOTE | ~2023-04-05 | FL_ITS ---
CLINICAL INDICATION: Obstructing right ureteral stone and mild hydronephrosis seen on CT scan from March 30, 2023 FINDINGS: Technical assistance and equipment were provided by the Department of Radiology during intraoperative fluoroscopy for cystoscopy and retrograde ureteroscopy. 2, limited fluoroscopic spot images are submitted. A radiologist was not present during the procedure. The first image submitted demonstrates the proximal end of a presumed ureteral stent to project over the urinary bladder, which appears to contain dilute contrast. The second image submitted appears to demonstrate the tip of a cystoscope to project over the expected location of the urinary bladder. The distal loop of a presumed ureteral stent projects over the expected location of the urinary bladder as well. The images are available for review on PACS. TOTAL FLUOROSCOPY TIME: 20 seconds. CUMULATIVE DOSE: 8.0 mGy FL/FL guidance in OR IMPRESSION: Technical assistance and equipment provided by the Department of Radiology during intraoperative fluoroscopy, as above. Please see operative report for further details.
[2023-04-05 15:24] LABS: UPreg QC Valid YES; Urine Pregnancy NEGATIVE (NEGATIVE)
[2023-04-05] MEDS: Lactated Ringers 1,000 ML 80 ML IVCONT (15:27)
--- NOTE | 2023-04-05 15:27 | PC.NURSE ---
Care transitioned to Kaylee SERRANO in PACU.
--- NOTE | 2023-04-05 16:14 | P.CONAN_ITS ---
[facility] Active Problems Active Problems: All Active Problems (Updated 04/05/23 @ 08:38 by Hermilo Falk MD) Nephrolithiasis (Acute) Headache (Acute) Migraine headache (Acute) Cervical cancer screening (Acute) Hx of ovarian cyst (Acute) Back pain (Acute) Depression (Acute) GERD (gastroesophageal reflux disease) (Acute) Anxiety and depression (Acute) Morbid obesity (Acute) Vaginal bleeding between periods (Acute) Anosmia (Acute) Ovarian cyst (Acute) Vitamin D deficiency (Acute) Impaired fasting glucose (Acute) Past Medical History Medical History Back pain Depression GERD (gastroesophageal reflux disease) Anxiety and depression Morbid obesity Anosmia Diarrhea Sore throat Respiratory tract infection due to COVID-19 virus Ovarian cyst Vitamin D deficiency Impaired fasting glucose History of migraine Obesity Family History Family History Father Diabetes mellitus Mother No problems noted. Brother No problems noted. Brother Multiple sclerosis Maternal Grandmother No problems noted. Maternal Grandfather No problems noted. Paternal Grandfather No problems noted. Paternal Grandmother No problems noted. Brother No problems noted. Family history of problems with anesthesia: No Surgical History Surgical History H/O wisdom tooth extraction History of Problems with Anesthesia: No Social History Social History Housing: Apartment Alcohol intake: former Patient Tobacco Use Status: Never used Tobacco Use of substances other than those prescribed or required for medical reasons: Yes Substance Use Type: Marijuana Substance Use Frequency: Occasionally Are you DNR?: No Advance Directives: No Advance Directives Information Provided: Yes service: No Current occupational status: employed Meds Allergies Allergy/AdvReac Type Severity Reaction Status Date / Time No Known Allergies Allergy Verified 04/05/23 15:10 Active Medications: Current Medications Lactated Ringer's (Lr) 1,000 mls @ 80 mls/hr IVCONT .[id number] ANI Last Admin: 04/05/23 15:27 Dose: 80 mls/hr Exam Height,Weight and Vital Signs: Height 5 ft 4 in Weight 115.212 kg Last Vital Signs Temp 97 F 04/05/23 15:24 Pulse 67 04/05/23 15:24 Resp 16 04/05/23 15:24 BP 142/78 H 04/05/23 15:24 Pulse Ox 100 04/05/23 15:24 O2 Del Method Room Air 04/05/23 15:24 Pertinent Lab Results Pertinent Lab Results: Laboratory Tests 04/05/23 15:12 Urine Test NEGATIVE Airway Mallampati Class: III TM Dist: >3cm Neck ROM: Full Assessment and Plan Assessment Anesthesia Assessment: Anesthesia Plan Discussed and Chart Reviewed Final Anesthetic Review Family History of Problems with Anesthesia: No History of Problems with Anesthesia: No NPO: Yes ASA Class: III Final Preanesthetic Review: No Changes in Pt Med Stat, Meds/Allgs Chart Reviewed, Consent Obtained/Reviewed and Anes Risks/Benef Reviewed Patient Risk: Intermediate Procedure Risk: Low Anesthetic Plan Anesthetic Plan: GA Disposition: Standard PACU
--- NOTE | 2023-04-05 16:38 | MHC.SHP ---
Pre-Procedural Eval Section A - 24 Hr Update-Section A only Date of Service: 04/05/23 The patient is an INPATIENT: No Changes since office visit: No Cold of Flu in the past 2 weeks, No New Medical Problems, No Changes in Medication and No Patient answered all questions The patient has been examined within 24 hours of the surgical procedure. The History & Physical has been completed within 30 days and I have reviewed it.: Yes Section B - Complete if H&P > 30 days Chief Complaint: Calculus of kidney Details of Present Illness: distal right ureteric stone Allergies: Allergies Allergy/AdvReac Type Severity Reaction Status Date / Time No Known Allergies Allergy Verified 04/05/23 15:10 Review of Systems Sugical H&P ROS: Negative: Constitution, Cardiovascular, Respiratory, Neurological, Psychiatric, Hem-Onc, Allergic/Immunologic, Gastrointestinal, Genitourinary, Musculoskeletal, Integumentary, Endocrine and Eyes/Ears/Nose/Throat Exam Surgical H&P Exam: Normal: HEENT, Normal: Heart, Normal: Lungs, Normal: Extremities, Normal: Abdomen, Normal: Skin and Normal: Neurological Plan Diagnosis/Plan: Unchanged (cystoscopy, right retrograde, uerteroscopy, laser, stent) I have reviewed the history and physical and performed a pertinent physical examination on my patient. No changes have occurred unless specified. Time Spent With Patient Time: Total time managing care of this patient today ____ minutes.
--- NOTE | 2023-04-05 17:00 | PC.NURSE ---
antibiotic pulled from [employer] and provided to Denys Dailey for o.r. for anesthesia to provide
--- NOTE | 2023-04-05 17:17 | P.OP_ITS ---
Operative Note Operative Note Date of Service: 04/05/23 Narrative: PreOperative Diagnosis: distal right ureteric stone Post Operative Diagnosis: distal right ureteric inflammation Procedure: - cystoscopy, right retrograde - right dilatation of ureteric orifice under fluoroscopy - right ureteroscopy - right stent placement Surgeon: Dr Hermilo Falk Anesthesia: General Indications for procedure: see above Procedure: After informed consent was verified the patient was brought to the operating room and placed in a supine position. Anesthesia was administered per protocol. The patient was placed in a modified dorsal lithotomy position and prepped and draped in a sterile fashion. Safety pause time-out and side of surgery were confirmed. Images were available for review. Antibiotic administration confirmed. A 22 Turkmen cystoscope was inserted per urethra. The urethra was without aabnormality. The bladder was normal in its entirety. Both ureteric orifices were seen in normal position. The right ureteric orifice was cannulated and a retrograde examination was performed. no filling defect seen but tightness noted of distal ureter . A Sensor guidewire was placed up to the level of the renal pelvis under fluoroscopy. The rigid cystoscope was removed. A Elier dilator was placed over the Se nsor guidewire and used to dilate the ureteric orifice under fluoroscopy. The dilator was removed. The semi rigid ureteral scope was placed alongside the Sensor guidewire. INflammation at lower ureter, mid open, napprowing between middle 1/3 and proximal. No stone found. Evidence of recent stone progression. A decision was made to place a ureteric stent. Based on the height of the patient a 6 Fr x 24 stent was used. The string was removed from the stent prior to placement A 6 Turkmen by 24 cm double-J stent was placed into the renal pelvis and bladder under a combination of fluoroscopy and direct visualization. The symphisis pubis was used as a radiographic marker to release the stent and good coil was seen within the bladder confirming position The bladder was emptied. The patient tolerated the procedure well and was extubated in the operating room. They were transferred in stable condition to the recovery area. Pathology: - Drains: Double J stent as described above
[2023-04-05] MEDS: oxyCODONE HCl Immed Release 5 MG TABLET PO (17:34)
[2023-04-05] MEDS: Phenazopyridine HCL 100 MG TABLET PO (17:34)
[2023-04-05] MEDS: fentaNYL citrate/PF 100 MCG/2 ML VIAL 50 MCG IVPUSH (17:37)
== END 2023-04-05 18:35 | disposition home or self-care (01) ==
PROVIDERS: Anesthesiology; PCP Internal Medicine; Visit Provider Urology
PROC: (CPT 52351; principal; 2023-04-05 16:30)
DX: N20.1 Calculus of ureter (principal); N28.86 Ureteritis cystica; M54.9 Dorsalgia, unspecified; R73.01 Impaired fasting glucose; E66.01 Morbid (severe) obesity due to excess calories; E55.9 Vitamin D deficiency, unspecified; R43.0 Anosmia; F41.8 Other specified anxiety disorders; Z79.899 Other long term (current) drug therapy; F12.90 Cannabis use, unspecified, uncomplicated
CPT/HCPCS: 52351; 52332; 81025; C1758; C1769; C2617; J0131; J1100; J1885; J1956; J2250; J2405; J2704; J3010; Q9967

== ENCOUNTER → 2023-04-05 14:55 | Outpatient (BNV) | payer OTHER, SELFPAY | PROVIDERS: PCP Internal Medicine; Visit Provider Urology | DX: N20.0 Calculus of kidney (principal) | CPT/HCPCS: 52332; 74420 ==

== ENCOUNTER 2023-04-17 08:53 | Outpatient (AMB) | payer OTHER, SELFPAY ==
--- NOTE | 2023-04-17 09:05 | MHC.OFFVIS ---
Intake Intake Visit Reasons: Cysto Stent Removal Intake Note: Patient is Present for Cystoscopy Urology Med: None Antibiotic Allergy: None Blood Thinner: None URO- G Disposable Cystoscope lot: [id number] exp:07/22/2024 Allergies No Known Allergies Allergy (Verified 04/17/23 09:06) Medication List - Last Reconciled 04/17/23 by Hermilo Falk MD No Known Home Meds HPI HPI Comments History of Present Illness Details Reanna is a pleasant female. She is a patient of Dr. Morales. She is seen for following urologic conditions - nephrolithiasis Here in office for stent removal Minimal stones seen on prior CT Six-month follow-up imaging Stable can move to yearly Nephrolithiasis Multiple presentation to emergency room - persistent nausea with pain control First-time stone former Imaging - 04/03 CT Mild right renal hydronephrosis and proximal hydroureter due to partially obstructing 3 mm stone found in the mid course right ureter Intervention - 05/04 right ureteroscopy Plan for surveillance [facility] Medical History Back pain Depression GERD (gastroesophageal reflux disease) Anxiety and depression Morbid obesity Anosmia Diarrhea Sore throat Respiratory tract infection due to COVID-19 virus Ovarian cyst Vitamin D deficiency Impaired fasting glucose History of migraine Obesity Surgical History H/O wisdom tooth extraction Family History Father Diabetes mellitus Mother No problems noted. Brother No problems noted. Brother Multiple sclerosis Maternal Grandmother No problems noted. Maternal Grandfather No problems noted. Paternal Grandfather No problems noted. Paternal Grandmother No problems noted. Brother No problems noted. Social History Housing: Apartment Alcohol intake: former Patient Tobacco Use Status: Never used Tobacco Substance Use Type: Marijuana service: No Current occupational status: employed Female Reproductive History Menstrual Age of Menarche: 8 Review of Systems Const Denies chills and Denies fever(s) Card Reports no additional complaints and Denies syncope Resp Denies cough GI Denies abdominal pain and Denies heartburn Reports as per HPI and Denies change in libido Neuro Denies syncope Psych Denies change in libido Endo Denies change in libido Physical Exam Const General: cooperative, healthy appearing, comfortable and no acute distress Orientation/consciousness: patient oriented x3 HEENT Face and sinus: Yes normal facial exam Mouth: moist mucous membranes Neck Neck: Yes normal visual inspection, Yes full ROM and Yes trachea midline Chest Chest palpation & inspection: normal inspection of the chest Resp Effort & Inspection: normal respiratory effort, able to speak in complete sentences and no respiratory distress GI Inspection: Yes normal to inspection Back/Spine/Pelvis Cervical Spine: normal cervical lordosis Thoracic/Lumbar Spine: thoracic and lumbar spine normal to inspection Skin General skin exam: no rashes or lesions noted Neuro General: patient oriented x3, gait normal, tone normal and moves all extremities Extrem General: Yes normal to inspection and Yes capillary refill normal Office Procedures Cystoscopy Consent Discussed risk and benefit or proposed procedure with the patient. Information consent for procedure given to the patient. Discussed technical aspects, risks, benefits and alternatives in full. Addressed all of the patient's questions and concerns regarding the procedure. The patient demonstrated knowledge and understanding. They wish to proceed with this procedure. Preparation The patient was prepped in the usual manner. A mri technologist was present and in the room. Genitalia was prepped with betadine solution in a sterile manner. Lidocaine Jelly 2% was placed into the urethra and 16Fr flexible Olympus cystoscope was inserted into the meatus after adequate lubrication. Procedure A well lubricated 16 Romansh cystoscope was placed No abnormality noted of urethra during placement Indwelling stent seen within bladder emerging from right ureteric orifices The stent was grasped with a 3 prong grasper and removed without difficulty The patient tolerated the procedure well [id number] with stent removal DISPOSABLE SCOPE URO-G FLEXIBLE SCOPE Procedure code (CPT) selection complete Office Meds lidocaine HCl 2 % mucosal jelly in applicator Performing Provider: Hermilo Falk MD Performing Location: [facility] Administered by: Avinash Robles LPN on 04/17/23 09:18 Dose Route Admin Location Dispensed Lot Number Expiration Date [employer] 10 mL intra-urethral 10 mL nitrofurantoin monohydrate/macrocrystals 100 mg capsule Performing Provider: Hermilo Flak MD Performing Location: [facility] Administered by: Avinash Robles LPN on 04/17/23 09:18 Dose Route Admin Location Dispensed Lot Number Expiration Date [employer] 100 mg PO 1 cap naproxen 500 mg tablet Performing Provider: Hermilo Falk MD Performing [facility] Administered by: Avinash Robles LPN on 04/17/23 09:18 Dose Route Admin Location Dispensed Lot Number Expiration Date [employer] 500 mg PO 1 tab Results AMB Urinalysis, Automated UA Leukoctes 500 Madina/uL Last Edit by DARLING Hopper on 04/17/23 09:08 UA Nitrite Negative Last Edit by DARLING Hopper on 04/17/23 09:08 UA Urobilinogen 0.2 mg/dL Last Edit by DARLING Hopper on 04/17/23 09:08 UA Protein 100 mg/dL Last Edit by DARLING Hopper on 04/17/23 09:08 UA pH 6.0 Last Edit by DARLING Hopper on 04/17/23 09:08 UA Blood 200 Marc/uL Last Edit by DARLING Hopper on 04/17/23 09:08 UA Specific [place] 1.030 Last Edit by DARLING Hopper on 04/17/23 09:08 UA Ketone Negative Last Edit by DARLING Hopper on 04/17/23 09:08 UA Bilirubin 0 mg/dL Last Edit by DARLING Hopper on 04/17/23 09:08 UA Glucose 0 mg/dL Last Edit by DARLING Hopper on 04/17/23 09:08 Results Reviewed Results Reviewed: Laboratory Last Values Urine pH (Auto) 6.0 04/17/23 09:03 Specific [place] (Auto) 1.030 04/17/23 09:03 Urine Protein (Auto) 100 mg/dL 04/17/23 09:03 Glucose (UA)(Auto) 0 mg/dL 04/17/23 09:03 Urine Ketones (Auto) Negative 04/17/23 09:03 Urine Blood (Auto) 200 Marc/uL 04/17/23 09:03 Urine Nitrite (Auto) Negative 04/17/23 09:03 Urine Bilirubin (Auto) 0 mg/dL 04/17/23 09:03 Urine Urobilinogen (Auto) 0.2 mg/dL 04/17/23 09:03 Leukocyte Esterase (Auto) 500 Madina/uL 04/17/23 09:03 Assessment & Plan Assessment & Plan (1) Nephrolithiasis: Code(s): N20.0 - Calculus of kidney Plan Six-month follow-up imaging Orders: Orders US renal BI 6 Months N20.0 - Calculus of kidney AMB Cystoscopy Today N20.0 - Calculus of kidney AMB Urinalysis Automated Today Z13.9 - Encounter for screening, unspecified Patient Instructions: Imaging studies, laboratory and physical exam results were discussed and reviewed in detail. No major barriers to patient understanding were identified. An opportunity to ask questions regarding the treatment plan was provided. All questions were answered. The patient expressed understanding and agreement with the above treatment plan. The patient is aware they should contact our office by phone for worsening of their current condition or the appearance of new urologic symptoms. Compliance is encouraged with any medications and followup testing that is ordered. It is a privilege to participate in the urologic care of your patient. If you have any questions or concerns regarding treatment for the above conditions, or other urologic issues, please do not hesitate to contact me. The office telephone contact is [phone]. This note is constructed using voice recognition software. While every effort has been made to ensure accuracy evaporator errors may have been included. Yours sincerely, Dr Hermilo Falk MD, [facility] - Urology Providers of Expert, Compassionate Care for the Genitourinary System Coding Level of Care Code Est Pt Level 3 (55444) Diagnoses Nephrolithiasis N20.0 CPT Codes Cystoscopy - CPT: 86416-[id number] with stent removal ([id number])
== END 2023-04-17 09:37 | disposition home or self-care (01) ==
PROVIDERS: PCP Internal Medicine; Visit Provider Urology
DX: N20.0 Calculus of kidney (principal); Z96.0 Presence of urogenital implants; Z13.9 Encounter for screening, unspecified
CPT/HCPCS: 52310

== ENCOUNTER → 2023-04-17 08:53 | Outpatient (BNVA) | payer OTHER, SELFPAY | PROVIDERS: PCP Internal Medicine; Visit Provider Urology | DX: N20.0 Calculus of kidney (principal) | CPT/HCPCS: 52310; 81003 ==

== ENCOUNTER 2023-09-20 10:40 | Outpatient (AMB) | payer OTHER, SELFPAY ==
--- NOTE | 2023-09-20 11:12 | MHC.PC.OV ---
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 Patient reports she was informed she was prediabetic and was placed on medication, unsure of the medication. Patient reports she has experienced weight loss and would like to continue with injectables like ozempic. Family history of diabetes. Patient reports she has pain in both wrists. 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 Accompanied by: Self / Same As Patient Allergies No Known Allergies Allergy (Verified 09/20/23 11:18) Medication List - Last Reconciled 09/22/23 by Elke Reed MD ondansetron 4 mg PO Q8H PRN Wegovy (semaglutide (weight loss)) 0.5 mg (0.5 mL) subcut QWEEK 12 weeks NS Tobacco use date assessed: 09/20/23 Dental Screening Dental Screen Date: 09/20/23 Did you have a dental visit in the last 12 months?: Yes Did you have a dental problem in the last 6 months where you did not have access to dental care?: No Was dental information given to patient?: Patient has dentist HPI HPI Comments History of Present Illness Details The patient is a a 28 year old female with a past medical history of obesity, prediabetes, kidney stones presenting to establish care. Prediabetes-says her labs have not been repeated for years. she is frustrated by weight. Tries to eat healthly, exercise. At one point considered weight loss surgery. Interested in GLP History of nephrolithiasis s/p stent, stent removal ROS CONSTITUTIONAL: Denies weight loss, fever and chills. HEENT: Denies changes in vision and hearing. RESPIRATORY: Denies SOB and cough. CV: Denies palpitations and CP GI: Denies abdominal pain, nausea, vomiting and diarrhea. : Denies dysuria and urinary frequency. MSK: Denies new myalgia and joint pain. SKIN: Denies rash and pruritus. NEUROLOGICAL: Denies headache PSYCHIATRIC: Denies recent changes in mood. PHYSICAL EXAM: GENERAL: Alert and oriented x 3. NAD EYES: EOMI. Anicteric. HENT: Moist mucous membranes. No scleral icterus. No cervical lymphadenopathy. LUNGS: Clear to auscultation bilaterally. CARDIOVASCULAR: Regular rate and rhythm. No murmur. No JVD. ABDOMEN: Soft, non-tender +bs EXTREMITIES: No edema. Non-tender. SKIN: No rashes or lesions. Warm. NEUROLOGIC: No focal neurological deficits. CN II-XII grossly intact PSYCHIATRIC: Cooperative. Appropriate mood and affect [facility] Medical History Obesity Back pain Depression GERD (gastroesophageal reflux disease) Anxiety and depression Morbid obesity Anosmia Diarrhea Sore throat Respiratory tract infection due to COVID-19 virus Ovarian cyst Vitamin D deficiency Impaired fasting glucose History of migraine Surgical History H/O wisdom tooth extraction Family History Father Diabetes mellitus Hypertension Mother Hypertension Brother No problems noted. Brother Multiple sclerosis Maternal Grandmother Diabetes mellitus Maternal Grandfather Diabetes mellitus Paternal Grandfather Diabetes mellitus Paternal Grandmother Diabetes mellitus Brother No problems noted. Social History Household Members: None Household Members Other:: Husky dog Housing: Apartment 75 years or older and lives alone: No Alcohol intake: current Alcohol intake frequency: holidays/special occasions only Alcohol type: beer, wine and hard liquor Patient Tobacco Use Status: Never used Tobacco e-Cigarette/Vaping Use: Currently Using Substance Use Type: Marijuana service: No Current occupational status: employed Current occupation: [employer] Cognitive needs: No Hearing needs: No Vision needs: No Female Reproductive History Menstrual Age of Menarche: 8 Questionnaire PHQ-9 Over the last 2 weeks, how often have you been bothered by any of the following problems? 1. Little interest or pleasure in doing things: more than half the days 2. Feeling down, depressed, or hopeless: several days 3. Trouble falling or staying asleep, or sleeping too much: more than half the days 4. Feeling tired or having little energy: nearly every day 5. Poor appetite or overeating: nearly every day 6. Feeling bad about yourself - or that you are a failure or have let yourself or your family down: not at all 7. Trouble concentrating on things, such as reading the newspaper or watching television: several days 8. Moving or speaking so slowly that other people could have noticed. Or the opposite - being so fidgety or restless that you have been moving around a lot more than usual: several days 9. Thoughts that you would be better off or of hurting yourself in some way: not at all Total score: 13 Depression Screening Interpretation: Positive Depression Screening Follow-up: Existing condition and Declines treatment Depression Screening Done: Yes 94879 - PHQ-9 Billing: Yes Source: Developed by Drs. Reji Cuenca, Emilia Lundberg, Hernan Kate and colleagues, with an educational marcus from [employer]. Thrive Questionnaire Date Thrive assessed: 09/20/23 I am a: Patient What is your living situation today?: I have a steady place to live Within the past 12 months, did the food you bought not last and you didn't have the money to get more?: Never true Within the past 12 months, did you worry whether your food would run out before you got money to buy more?: Never true Do you have trouble paying for medicines?: No Do you have trouble getting transportation to medical appointments?: No Do you have trouble paying your heating and electricity bill?: No Do you have trouble taking care of your child, family member or friend?: No Do you have trouble with day-to-day activities such as bathing, preparing meals, shopping, managing finances, etc.?: No Are you currently unemployed and looking for a job?: No Are you interested in more education?: No Please select the resources that you would like help with: None Currently or been in a relationship where the following occur: No concerns reported THRIVE Score: 0 AUDIT C Alcohol Use Questionnaire (AUDIT-C) 1. How often do you have a drink containing alcohol?: Never 3. How often do you have six or more drinks on one occasion?: Never Total Score: 0 JUAN-7 AMB Questionnaire JUAN-7 Date JUAN - 7 assessed: 09/20/23 Feeling nervous, anxious, or on edge: 1 = Several days Not being able to stop or control worryin = Not at all Worrying too much about different things: 0 = Not at all Trouble relaxin = Not at all Being so restless that it is hard to sit still: 0 = Not at all Becoming easily annoyed or irritable: 1 = Several days Feeling afraid as if something awful might happen: 0 = Not at all Total JUAN-7 score (0-4 normal; 5-9 mild; 10-14 moderate; 15-21 severe): 2 Source: Developed by Drs. Reji Cuenca, Emilia Lundberg, Hernan Kate and colleagues, with an educational marcus from [employer]. JUAN-7 Assessment Billing JUAN-7 Assessment Tool: JUAN-7 Assessment 29457 Physical exam (Primary Care) Vital Signs: Last Vital Signs Pulse 93 09/20/23 11:14 BP 112/68 09/20/23 11:14 Pulse Ox 99 09/20/23 11:14 Oxygen Delivery Method Room Air 09/20/23 11:14 BMI result Body Mass Index 50.1 Tobacco/Smoking Status: Tobacco use Status Tobacco use date assessed 09/20/23 09/20/23 11:23 Patient Tobacco Use Status Never used Tobacco 09/20/23 11:23 e-Cigarette/Vaping Use Currently Using 09/20/23 11:23 PHQ-9: PHQ-9 Score PHQ-9: Total score 13 09/20/23 11:53 Depression Screening Interpretation: Positive Depression Screening Follow-up: Existing condition and Declines treatment Thrive Assessment: Date of Thrive Assessment Date Thrive assessed 09/20/23 09/20/23 11:26 Currently or been in a relationship where the following occur: No concerns reported Assessment and Plan Assessment & Plan (1) Nephrolithiasis: Code(s): N20.0 - Calculus of kidney Plan: follow up urology prn (2) Anxiety and depression: Code(s): F41.9 - Anxiety disorder, unspecified; F32.A - Depression, unspecified Plan: stable (3) Morbid obesity: Code(s): E66.01 - Morbid (severe) obesity due to excess calories Plan: start wegovy. Low calorie diet. Atleast 1/2 h cardiovascular exercise atleast five time per week Orders: Orders Complete Blood Count Auto Diff 09/20/23 R73.01 - Impaired fasting glucose, Z13.0 - Encounter for screening for diseases of the blood and blood-forming organs and certain disorders involving the immune mechanism, Z13.228 - Encounter for screening for other metabolic disorders Comprehensive Met. Panel 09/20/23 R73.01 - Impaired fasting glucose, Z13.0 - Encounter for screening for diseases of the blood and blood-forming organs and certain disorders involving the immune mechanism, Z13.228 - Encounter for screening for other metabolic disorders Hemoglobin A1c 09/20/23 R73.01 - Impaired fasting glucose, Z13.0 - Encounter for screening for diseases of the blood and blood-forming organs and certain disorders involving the immune mechanism, Z13.228 - Encounter for screening for other metabolic disorders TSH reflex Free T4 09/20/23 R73.01 - Impaired fasting glucose, Z13.0 - Encounter for screening for diseases of the blood and blood-forming organs and certain disorders involving the immune mechanism, Z13.228 - Encounter for screening for other metabolic disorders Medications: New Wegovy (semaglutide (weight loss)) 0.5 mg (0.5 mL) subcut QWEEK 12 weeks 6 mL 3RF NS ondansetron 4 mg PO Q8H PRN 30 tabs 3RF nausea and vomiting Coding Level of Care Code Tele New Pt Level 4 (46062) Diagnoses Nephrolithiasis N20.0 Anxiety and depression F41.9; F32.A Morbid obesity E66.01 Additional Codes JUAN-7 Assessment Billing - JUAN-7 Assessment Tool: JUAN-7 Assessment 62401 ([id number])
[2023-09-20 11:14] VITALS: BP 112/68; PULSE 93; O2SAT 99; BMI 50.1
== END 2023-09-20 11:55 | disposition home or self-care (01) ==
PROVIDERS: PCP Internal Medicine; Visit Provider Internal Medicine
DX: N20.0 Calculus of kidney (principal); E66.01 Morbid (severe) obesity due to excess calories; Z68.43 Body mass index [BMI] 50.0-59.9, adult; F41.9 Anxiety disorder, unspecified; F32.A Depression, unspecified
CPT/HCPCS: 99214

== ENCOUNTER 2023-09-20 12:37 | Outpatient (REF) | payer OTHER, SELFPAY ==
[2023-09-20 14:23] LABS: MANUAL DIFF FLAG NO
[2023-09-20 14:29] LABS: Basophils Percent Auto 0.5 % (0-2); Eosinophils Absolute Auto 0.1 X10*3/uL (0.0-0.4); Eosinophils Percent Auto 1.4 % (0-4); Hematocrit 39.5 % (37.0-47.0); Hemoglobin 12.4 g/dl (12.0-16.0); Imm Gran Abs Auto 0.04 X10*3/uL (0.00-0.03); Imm Gran Pct Auto 0.6 % (0.0-0.4); Lymphocytes Absolute Auto 1.7 X10*3/uL (1.2-4.9); Lymphocytes Percent Auto 25.9 % (20-40); Mean Corpuscular HGB Conc 31.4 g/dl (31.0-35.0); Mean Corpuscular Hemoglobin 26.1 pg (27.0-33.0); Mean Platelet Volume 11.2 fL (9.4-12.3); Monocytes Absolute Auto 0.5 X10*3/uL (0.1-1.2); Monocytes Percent Auto 7.3 % (2-11); Neutrophils Absolute Auto 4.2 x10*3/uL (2.0-8.3); Neutrophils Percent Auto 64.3 % (45-73); Platelet Count 316 X10*3/uL (160-400); Red Blood Count 4.76 X10*6/uL (4.20-5.50); Red Cell Distribution Width 14.5 % (11.0-16.0); White Blood Count 6.6 X10*3/uL (4.8-10.8)
[2023-09-20 14:39] LABS: Estimated Average Glucose 117 mg/dL; Hemoglobin A1c % 5.7 % (<6.0)
[2023-09-20 15:06] LABS: Alanine Aminotransferase 14 U/L (0-31); Alkaline Phosphatase 64 U/L (39-117); Anion Gap 10 (12-20); Aspartate Amino Transferase 12 U/L (5-31); Bilirubin Total 0.4 mg/dL (0.0-1.0); Blood Urea Nitrogen 11 mg/dL (9-16); Calcium 9.6 mg/dL (8.4-10.2); Carbon Dioxide 27 mmol/L (22-29); Chloride 107 mmol/L (96-108); Estimated Glomerular Filt Rate > 60; Glucose Random 80 mg/dL (60-115); Sodium 140 mmol/L (135-145); Total Protein 7.2 g/dL (6.5-8.0)
[2023-09-20 15:07] LABS: TSH reflex Free T4 0.54 uIU/mL (0.32-4.0)
== END 2023-09-20 12:38 | disposition home or self-care (01) ==
LOC: HO.WFDLDS 12:37
PROVIDERS: Visit Provider Internal Medicine
DX: Z13.0 Encounter for screening for diseases of the blood and blood-forming organs and certain disorders involving the immune mechanism (principal); Z13.228 Encounter for screening for other metabolic disorders; R73.01 Impaired fasting glucose
CPT/HCPCS: 36415; 80053; 83036; 84443; 85025

== ENCOUNTER 2023-10-01 12:19 | Emergency (ER) | payer OTHER, SELFPAY ==
--- NOTE | ~2023-10-01 | XR_ITS ---
EXAMINATION: XR WRIST, LEFT CLINICAL INFORMATION: Left wrist pain and tingling. COMPARISON: None available. TECHNIQUE: PA, lateral, oblique, and scaphoid views of the left wrist. FINDINGS: No acute fracture. Widening of the scapholunate interval measuring up to 0.4 cm in ML dimension, likely indicating an underlying scapholunate ligament tear. No dislocation. No joint space narrowing or marginal osteophytes. No osseous erosion. No abnormal soft tissue calcification. XR/XR wrist LT min 3V IMPRESSION: 1. No acute fracture or dislocation. 2. Widening of the scapholunate interval, likely indicating underlying scapholunate ligament tear.
[2023-10-01 12:22] VITALS: BP 138/87; PULSE 79; RESP 18; TEMP 36.9; O2SAT 98; BMI 41.2
--- NOTE | 2023-10-01 12:31 | ED.GENADULT ---
HPI - General Adult General Chief complaint: General Medical Stated complaint: L wrist pain/numbness, genital discomfort Time Seen by Provider: 10/01/23 13:40 Source: patient Mode of arrival: ambulatory Limitations: no limitations History of Present Illness ED Provider: AYDEN BLANTON PA-C HPI narrative: 28 year old female with no significant pmhx presents to the ED today with multiple concerns. Patient reports left wrist pain x1 week. She feels a throbbing/pressure on the dorsal aspect of her left wrist and numbness and tingling in the 2nd, 3rd, and 4th digits. 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 Denies injury or trauma. Denies previous surgeries or hx of carpal tunnel. Denies fever/ chills. Additionally reports vaginal itching/ irritation. She states she is not sexually active and denies concern for STI. Denies dysuria, hematuria, vaginal discharge, vaginal bleeding, rashes, vaginal lesions. Related Data Previous Rx's ?Medication ?Instructions ?Recorded Wegovy 0.5 mg/0.5 mL subcutaneous 0.5 mg (0.5 mL) subcut QWEEK 12 09/20/23 pen injector (semaglutide (weight weeks #6 mL loss)) acetaminophen 325 mg capsule 650 mg (2 x 325 mg) PO Q4H PRN 10/03/23 (Tylenol) pain #30 caps Allergies Allergy/AdvReac Type Severity Reaction Status Date / Time No Known Allergies Allergy Verified 10/04/23 08:54 Review of Systems Review of Systems: Constitutional: No fever, chills, fatigue, night sweats, weight changes ENT/Mouth: No ear pain, hearing loss, nasal congestion, sinus pain, rhinorrhea, sore throat Eyes: No eye pain, swelling, redness, vision changes, discharge Cardio: No chest pain, palpitations, JACKSON, orthopnea, peripheral edema Pulm: No SOB, cough, sputum, wheezing, dyspnea, hemoptysis GI: No nausea, vomiting, hematemesis, abdominal pain, diarrhea, constipation, hematochezia, melena : No irregular bleeding, dysuria, frequency, urgency, hesitancy, hematuria, flank pain, urinary flow changes, urinary incontinence or retention, +vaginal pruritus MSK: No back pain, neck pain, joint pain, myalgias, +left wrist pain Skin: No lesions, rashes Neuro: No weakness, numbness, paresthesias, LOC, dizziness, headache Psych: No anxiety/panic, depression, SI/HI, AH/VH All other systems reviewed and are negative. [facility] Past Medical History Attestation statement: The following information was validated with the patient. Source: old records reviewed and nursing notes reviewed Medical History Obesity Back pain Depression GERD (gastroesophageal reflux disease) Anxiety and depression Morbid obesity Anosmia Diarrhea Sore throat Respiratory tract infection due to COVID-19 virus Ovarian cyst Vitamin D deficiency Impaired fasting glucose History of migraine Surgical History H/O wisdom tooth extraction Family History Family History Father Diabetes mellitus Hypertension Mother Hypertension Brother No problems noted. Brother Multiple sclerosis Maternal Grandmother Diabetes mellitus Maternal Grandfather Diabetes mellitus Paternal Grandfather Diabetes mellitus Paternal Grandmother Diabetes mellitus Brother No problems noted. Social History Social History Household Members: None Household Members Other:: Husky dog Housing: Apartment 75 years or older and lives alone: No Alcohol intake: current Alcohol intake frequency: holidays/special occasions only Alcohol type: beer, wine and hard liquor Patient Tobacco Use Status: Never used Tobacco e-Cigarette/Vaping Use: Currently Using Substance Use Type: Marijuana service: No Current occupational status: employed Current occupation: [employer] Cognitive needs: No Hearing needs: No Vision needs: No Physical Exam ED Vital Signs: Vital Signs - 24 hr 10/01/23 12:22 10/01/23 15:05 Temperature 98.5 F 98.5 F Pulse Rate 79 79 Respiratory Rate 18 18 Blood Pressure 138/87 138/87 Pulse Oximetry 98 98 Oxygen Delivery Method Room Air Room Air BMI result Body Mass Index 41.2 vital signs stable Const General: cooperative, healthy appearing, comfortable and no acute distress Orientation/consciousness: patient oriented x3 Limitations: no limitations HENMT Head: Yes normal to inspection Eyes General: appearance normal, both eyes and all related structures Pupils: Equal, round and reactive pupils present Neck Neck: Yes normal visual inspection Resp Effort & Inspection: normal respiratory effort and able to speak in complete sentences Auscultation: clear to auscultation bilaterally Cardio Rate: regular rate Rhythm: regular rhythm GI Other: abdomen is soft, ND/NT, no rebound or guarding. normoactive bs x4. Other: Sensitive exam performed with Promise SERRANO present in room to supervisory training specialist. External genitalia is normal in appearance without lesions, swelling, masses or tenderness. Vaginal canal is pink and moist without lesions or discharge. Cervix is non-tender without lesions or erosions. Uterus is anteflexed, non-tender and normal in size. Ovaries are non-tender without palpable masses or enlargement. No cervical motion tenderness on bimanual exam. no inguinal LAD. General: Yes no CVA tenderness Back/Spine/Pelvis Back: no CVA tenderness Skin General skin exam: no rashes or lesions noted Neuro Other: Strength 5/5 intact throughout.?No saddle anesthesia.?Sensation intact to light touch.?Neurovascular intact distally.? General: patient oriented x3 Cranial nerves: Yes Equal, round and reactive pupils present Extrem Other: + minimal edema noted to dorsal L wrist. no overlying erythema or ecchymosis. No deformity. FROM intact to left hand/wrist with pain. ttp over 3rd dorsal compartment of left wrist. no snuffbox tenderness. 2+ radila/ ulnar pulse intact. Capillary refill less than 2 seconds. Course Course Course Narrative: This is a Rapid Medical Exam performed in triage by Mag Alex PA-C. Full HPI, ROS and PE to be performed by primary ED provider. 28 year-old F w/no sig PMHx presenting to the ED c/o L wrist pain x1 wk w/hand tingling x waking this morning.. Also reports vaginal burning/itching and irritation. Denies concern for STI, hematuria, vaginal discharge PE: Left wrist with mild tenderness. Neurovascularly intact. Plan: UA, CT NG, wrist x-ray Reevaluation(s) Reevaluation #1: 1500-- urine without infection. She has tested negative for gonorrhea and chlamydia. Presentation consistent with possible yeast infection. Will send fluconazole to pharmacy for treatment. Patient agreeable with this. X-ray of left wrist showing widening of the scapholunate interval, likely indicating underlying scapholunate ligament tear. There is no acute fracture or dislocation. Patient placed in a thumb spica splint. Patient advised to follow up with Orthopedic surgery this week. Referral provided. naproxen sent for pain control. Patient has remained stable throughout ED visit today. Discussed worrisome signs and symptoms and when to return to the ED. All questions answered at this time. Patient is agreeable with disposition and stable for discharge. Procedures Orthopedic Splinting/Casting Injury #1: Side: left Upper Extremity Injury Location: wrist Upper Extremity Immobilizer: thumb spica Medical Decision Making Medical Decision Making [facility] Narrative: 28 year old female with no significant pmhx presents to the ED today with multiple concerns. Vital signs stable. Patient is nontoxic appearing and in NAD. On exam of left wrist, minimal edema noted to dorsal L wrist. no overlying erythema or ecchymosis. No deformity. FROM intact to left hand/wrist with pain. ttp over 3rd dorsal compartment of left wrist. no snuffbox tenderness. 2+ radial/ ulnar pulse intact. Capillary refill less than 2 seconds. External genitalia is normal in appearance without lesions, swelling, masses or tenderness. Vaginal canal is pink and moist without lesions or discharge. Cervix is non-tender without lesions or erosions. Uterus is anteflexed, non-tender and normal in size. Ovaries are non-tender without palpable masses or enlargement. No cervical motion tenderness on bimanual exam. no inguinal LAD. Differential diagnosis includes contusion, msk sprain/ strain, fracture, carpal tunnel syndrome, UTI, STI. unlikely NV compromise, threat to limb, compartment syndrome. Plan for UA, CT/NG, xr, pain control, and re-evaluation. Differential Diagnosis Differential Diagnoses: The differential diagnosis associated with the presentation includes as above. Admission/Observation not indicated. Lab Data [facility] Lab Attestation statement: I reviewed the patient's lab results. as above Labs: Lab Results 10/01/23 10/01/23 Range/Units 13:11 14:50 Urine Color Yellow Urine Appearance Clear Urine pH 5.5 (5.0-9.0) Ur Specific Rowe 1.020 (1.005-1.025) Urine Protein Negative (Neg-Trace) mg/dL Urine Glucose (UA) Negative (Negative) mg/dL Urine Ketones Negative (Negative) mg/dL Urine Blood Negative (Negative) Urine Nitrite Negative (Negative) Ur Leukocyte Esterase Moderate (2+) H (Negative) Urine RBC 0-2 (0-2) /HPF Urine WBC 0-5 (0-5) /HPF Ur Squamous Epith Cells 0-2 (0-2) /HPF Urine Bacteria None Seen (None Seen) Hyaline Casts 0-2 (0-2) /LPF Chlam trachomat DNA PCR NOT DETECTED (Not Detect.) N.gonorrhoeae DNA (PCR) NOT DETECTED (Not Detect.) T. vaginalis (PCR) NOT DETECTED (Not Detect) Bact Vaginosis (PCR) POSITIVE A (Negative) C. krusei/glabrata (PCR) NOT DETECTED (Not Detect) Viv group (PCR) DETECTED A (Not Detect) Independent Interpretation I performed an independent interpretation of an: Plain X-Ray Interpretation: XR left wrist without acute fracture, agree with radiologist's interpretation. Radiology Impression Radiologist Impression: EXAMINATION: XR WRIST, LEFT CLINICAL INFORMATION: Left wrist pain and tingling. COMPARISON: None available. TECHNIQUE: PA, lateral, oblique, and scaphoid views of the left wrist. FINDINGS: No acute fracture. Widening of the scapholunate interval measuring up to 0.4 cm in ML dimension, likely indicating an underlying scapholunate ligament tear. No dislocation. No joint space narrowing or marginal osteophytes. No osseous erosion. No abnormal soft tissue calcification. XR/XR wrist LT min 3V IMPRESSION: 1. No acute fracture or dislocation. 2. Widening of the scapholunate interval, likely indicating underlying scapholunate ligament tear. Prescription Management I considered prescription management with: Pain Medication (naproxen) and Other (fluconazole) Social Determinants Patient?s care significantly limited by Social Determinants of Health including: Other Social Determinant of Health Critical Care Time Critical Care Time Critical Care Time: No Discharge Plan Discharge Clinical Impression: Vaginal pruritus, Scapholunate ligament injury with no instability Patient Disposition: Home, Self-Care Instructions: Wrist Sprain (ED) Additional Instructions: You do not have a urinary tract infection. Your urine and vaginal swabs were sent to the lab to check for other sexually transmitted infections. You will be called in a few days with any positive results that warrant treatment. Fluconazole as an antifungal medication. Take 1 dose today and another dose in 72 hours if still symptomatic.. Follow-up with medical practice administrator. If you do not have a medical practice administrator, a referral has been provided to you. The xray of your left wrist shows: XR wrist LT min 3V IMPRESSION: 1. No acute fracture or dislocation. 2. Widening of the scapholunate interval, likely indicating underlying scapholunate ligament tear. You were provided with a thumb spica wrist splint. Keep this applied until follow up with hand surgeon. You may take this off to shower. Naproxen as an anti-inflammatory that has been sent to your pharmacy. Take this as needed for pain/discomfort. Call the orthopedic hand surgeon to make an appointment. They will not call you. Return with new or worsening symptoms. In the case of an emergency call 911. Prescriptions: No Action acetaminophen [Tylenol] 325 mg capsule 650 mg PO Q4H PRN (Reason: pain) Qty: 30 0RF Wegovy 0.5 mg/0.5 mL pen injector 0.5 mg subcut QWEEK 84 Days Qty: 6 3RF Referrals: Jessica Marie MD [Physician] - 3 days (Scapholunate ligament tear) Ted Aguirre MD [Physician] - 3 days Stand Alone Forms: Work/School Release Interventions: ED Discharge Assessment Last Done: 10/01/23 15:05 Discharge Date/Time: 10/01/23 15:10 Print Language: Frisian
[2023-10-01 13:19] LABS: Appearance Urine Clear; Color Urine Yellow; Glucose Urine UA Negative (Negative); Leukocyte Esterase Urine Moderate (2+) (Negative); Nitrite Urine Negative (Negative); PH 5.5 (5.0-9.0); UMIC TRIGGER UACC YES; Urine Blood Negative (Negative); Urine Ketones Negative (Negative); Urine Protein Negative (Neg-Trace)
[2023-10-01 13:36] LABS: Bacteria Urine None Seen (None Seen); Hyaline Casts Urine 0-2 /LPF (0-2); RBC Urine 0-2 /HPF (0-2); Squamous Epithelial Cell Urine 0-2 /HPF (0-2); WBC Urine 0-5 /HPF (0-5)
[2023-10-01 15:05] VITALS: BP 138/87; PULSE 79; RESP 18; TEMP 36.9; O2SAT 98
[2023-10-01 15:41] LABS: CT PCR NOT DETECTED (Not Detect.); NG PCR NOT DETECTED (Not Detect.)
[2023-10-02 13:26] LABS: Bacterial Vaginosis PCR POSITIVE (Negative); Candida Group PCR DETECTED (Not Detect); Candida glab krusei PCR NOT DETECTED (Not Detect); Trichomonas vaginalis PCR NOT DETECTED (Not Detect)
== END 2023-10-01 15:10 | disposition home or self-care (01) ==
PROVIDERS: Physician Assistant; Physician Assistant Medical; Emergency Provider Emergency Medicine Emergency Medical Services; PCP Internal Medicine
DX: B37.31 Acute candidiasis of vulva and vagina (principal); N76.0 Acute vaginitis; S63.392A Traumatic rupture of other ligament of left wrist, initial encounter; X50.9XXA Other and unspecified overexertion or strenuous movements or postures, initial encounter; E66.9 Obesity, unspecified; Z68.41 Body mass index [BMI] 40.0-44.9, adult; Y93.G3 Activity, cooking and baking; Y92.233 Cafeteria of hospital as the place of occurrence of the external cause; Y99.0 Civilian activity done for income or pay
CPT/HCPCS: 0352U; 29125; 73110; 81001; 87491; 87591; 99283

== ENCOUNTER 2023-10-03 07:26 | Emergency (ER) | payer OTHER, SELFPAY ==
[2023-10-03 07:41] VITALS: BP 116/71; PULSE 79; RESP 16; TEMP 36; O2SAT 98; BMI 41.2
--- NOTE | 2023-10-03 08:59 | PC.NURSE ---
patient a&ox3, c/o 09/17 LUE pain, pt states the meds previously given to her havent worked and she had some numbness to the area yesterday. pt currently has + csm/pulses.
[2023-10-03] MEDS: Ketorolac Tromethamine 15 MG/ML VIAL 30 MG IM (10:07)
--- NOTE | 2023-10-03 10:13 | ED.EXTPRO ---
HPI - Extremity Problem General Chief complaint: Extremity Injury, Upper Stated complaint: L arm pain seen saturday Time Seen by Provider: 10/03/23 09:30 Source: patient Mode of arrival: ambulatory Limitations: no limitations History of Present Illness ED Provider: Cristobal JONES HPI Narrative: This is a 28-year-old female history of obesity, left wrist pain, ovarian cyst, and. Fasting glucose, depression, GERD, migraines presenting to the emergency department for complaints of left wrist pain that is not improving scheduled to see Orthopedics on October 13, reports she was seen here had an x-ray and she thinks she may have something with a ligament or tendon, she was given a splint which seemed to help however yesterday she decided to go back to work, and work seem to make it worse. She reports intermittent numbness and tingling to left hand/wrist. Denies associated trauma. Denies chest pain, shortness of breath, nausea, vomiting, abdominal pain, jaw pain, headache, vision changes, dizziness and weakness Related Data Previous Rx's ?Medication ?Instructions ?Recorded Wegovy 0.5 mg/0.5 mL subcutaneous 0.5 mg (0.5 mL) subcut QWEEK 12 09/20/23 pen injector (semaglutide (weight weeks #6 mL loss)) ondansetron 4 mg disintegrating 4 mg PO Q8H PRN nausea and 09/20/23 tablet vomiting #30 tabs fluconazole 150 mg tablet 150 mg PO Q3D 2 doses #2 tabs 10/01/23 naproxen 500 mg tablet 500 mg PO Q8-12H PRN pain (scale 10/01/23 score 1-3) #20 tabs acetaminophen 325 mg capsule 650 mg (2 x 325 mg) PO Q4H PRN 10/03/23 (Tylenol) pain #30 caps ketorolac 10 mg tablet 10 mg PO TID PRN pain 5 days #15 10/03/23 tabs prednisone 20 mg tablet 20 mg PO DAILY 5 days #5 tabs 10/03/23 Allergies Allergy/AdvReac Type Severity Reaction Status Date / Time No Known Allergies Allergy Verified 10/03/23 07:42 Review of Systems Review of Systems: Yes all other systems are reviewed and are negative PMFSH Past Medical History Attestation statement: The following information was validated with the patient. Source: old records reviewed and nursing notes reviewed Medical History Obesity Back pain Depression GERD (gastroesophageal reflux disease) Anxiety and depression Morbid obesity Anosmia Diarrhea Sore throat Respiratory tract infection due to COVID-19 virus Ovarian cyst Vitamin D deficiency Impaired fasting glucose History of migraine Surgical History H/O wisdom tooth extraction Family History Family History Father Diabetes mellitus Hypertension Mother Hypertension Brother No problems noted. Brother Multiple sclerosis Maternal Grandmother Diabetes mellitus Maternal Grandfather Diabetes mellitus Paternal Grandfather Diabetes mellitus Paternal Grandmother Diabetes mellitus Brother No problems noted. Social History Social History (System 10/02/23 @ 16:21 by Danyell Davalos) Household Members: None Household Members Other:: Husky dog Housing: Apartment Alcohol intake: current Alcohol intake frequency: holidays/special occasions only Alcohol type: beer, wine and hard liquor Patient Tobacco Use Status: Never used Tobacco e-Cigarette/Vaping Use: Currently Using Substance Use Type: Marijuana Advance Directives: No Advance Directives Information Provided: No Do you have a plan to hurt others: No Plan service: No Current occupational status: employed Current occupation: [employer] Cognitive needs: No Hearing needs: No Vision needs: No Physical Exam Vital Signs: Vital Signs: Last Vital Signs Temp 96.8 F 10/03/23 07:41 Pulse 79 10/03/23 07:41 Resp 16 10/03/23 07:41 BP 116/71 10/03/23 07:41 Pulse Ox 98 10/03/23 07:41 O2 Del Method Room Air 10/03/23 07:41 BMI result Body Mass Index 41.2 vss Appearance: Alert.? Oriented X3.? No acute distress.? Head: Normocephalic, atraumatic, no step-offs or deformities Eyes: Pupils equal, round and reactive to light.? Neck: Normal inspection.? Neck supple.? CVS: Pulses normal.? Respiratory: No respiratory distress.? Skin: Skin warm and dry.? Normal skin color.? Normal skin turgor.? Extremities: No lower extremity edema.? No calf ttp. 5/5 strength to bilateral upper and lower extremities + left wrist pain w/ palpation throughout. Normal distal sensation to UE b/l. 2+ radial pulses. No wrist drop. Normal handgrip. Full rom to b/l wrist slight discomfort to l wrist. Neuro: Oriented X 3.? No motor deficit.? No sensory deficit. CN 2-12 intact Medications Administered Discontinued Medications Generic Name Dose Route Start Last Admin Trade Name Sophia PRN Reason Stop Dose Admin Ketorolac Tromethamine 30 mg 10/03/23 09:52 10/03/23 10:07 Ketorolac Tromethamine 15 Mg/Ml Vial IM 10/03/23 09:53 30 mg ONCE ONE Administration Medical Decision Making Medical Decision Making MDM Narrative: 28-year-old female presents with left wrist pain. Physical exam No lower extremity edema.? No calf ttp. 5/5 strength to bilateral upper and lower extremities + left wrist pain w/ palpation throughout. Normal distal sensation to UE b/l. 2+ radial pulses. No wrist drop. Normal handgrip. Full rom to b/l wrist slight discomfort to l wrist. History and physical exam concerning for tendinitis versus sprain or strain versus cubital and or carpal tunnel syndrome. Unlikely fracture, dislocation, neurovascular compromise, acute threat to Villatoro, ACS. Plan will discharge with Toradol, prednisone, ortho follow-up. Differential Diagnosis Differential Diagnoses: The differential diagnosis associated with the presentation includes History and physical exam concerning for tendinitis versus sprain or strain versus cubital and or carpal tunnel syndrome. Unlikely fracture, dislocation, neurovascular compromise, acute threat to Villatoro, ACS. Admission/Observation Consideration of admission/observation: Escalation of care including admission/observation considered No indication External Record Review External record reviewed: Inpatient record, Office record, Outpatient record, Prior outpatient labs, Prior outpatient radiology, Primary care record and Outside ED record Tests considered The following testing was considered but not selected: Considered obtaining x-ray of left wrist however no indication for repeat x-ray, no acute fracture dislocation noted on 10/01/2023 widening of the scapholunate interval likely underlying scapholunate ligament tear. Prescription Management I considered prescription management with: Pain Medication told to start toradol and d/c naproxen. Chronic Conditions Patient?s care impacted by: Other (obestity ) Discharge Plan Discharge Clinical Impression: Left wrist pain Patient Disposition: Home, Self-Care Instructions: Wrist Injury (ED) Additional Instructions: Take your medications as prescribed. If you were prescribed antibiotics today, it is important that you take your medication to their entirety, do not skip any doses, do not finish them early. Follow-up with your primary care provider this week. Return to the emergency department with new or worsening symptoms. In case of emergency call 911 Prescriptions: New ketorolac 10 mg tablet 10 mg PO TID PRN (Reason: pain) 5 Days Qty: 15 0RF acetaminophen [Tylenol] 325 mg capsule 650 mg PO Q4H PRN (Reason: pain) Qty: 30 0RF prednisone 20 mg tablet 20 mg PO DAILY 5 Days Qty: 5 0RF No Action fluconazole 150 mg tablet 150 mg PO Q3D Qty: 2 0RF naproxen 500 mg tablet 500 mg PO Q8-12H PRN (Reason: pain (scale score 1-3)) Qty: 20 0RF Wegovy 0.5 mg/0.5 mL pen injector 0.5 mg subcut QWEEK 84 Days Qty: 6 3RF ondansetron 4 mg tablet,disintegrating 4 mg PO Q8H PRN (Reason: nausea and vomiting) Qty: 30 3RF Referrals: Elke Reed MD [Primary Care Provider] - 2 days Stand Alone Forms: Work/School Release Print Language: Cook Islander
[2023-10-03 10:23] VITALS: BP 118/73; PULSE 73; RESP 16; TEMP 36.1; O2SAT 98
== END 2023-10-03 10:24 | disposition home or self-care (01) ==
PROVIDERS: Emergency Provider Emergency Medicine; PCP Internal Medicine
DX: M25.532 Pain in left wrist (principal); Z79.899 Other long term (current) drug therapy
CPT/HCPCS: 96372; 99283; 99284; J1885

== ENCOUNTER 2023-10-04 08:42 | Outpatient (AMB) | payer OTHER, SELFPAY ==
--- NOTE | 2023-10-04 08:44 | MHC.OFFVIS ---
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 X-Rays on 10/01/23 at [facility] Patient reports her symptoms worsened about 2 weeks ago and a few days after her ED visit she started to experience numbness. She feels a throbbing/pressure on the dorsal aspect of her left wrist and numbness and tingling in the 2nd, 3rd, and 4th digits. She says last night she was in bed when she felt a random shooting pain that radiated up her arm. She was prescribed naproxen by the ED but states this does not offer relief and neither does Tylenol. ED also gave her a splint. The ED advised her not to return to work until her follow up with Orthopedics, she admits she went back to work the next day since this is a new job but expresses her hand got numb and mid shift she had to leave. 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 Denies recent injuries to left wrist and swelling. 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 The patient reports that she no particular injury or inciting event, but he noticed 1 day that she was having worsening pain in her left wrist with associated numbness and tingling. Patient presented to the emergency department, where x-rays were taken, revealing widening of the scapholunate joint. Today, the patient reports that she is still experiencing pain, primarily at the 3rd dorsal compartment of the left wrist. Patient also reports that she has still been experiencing some numbness and tingling. Patient was given a thumb spica splint to wear in the ED, which she reports is very uncomfortable and she does not feel it is helping. No other acute complaints or concerns at this time. [facility] Medical History Obesity Back pain Depression GERD (gastroesophageal reflux disease) Anxiety and depression Morbid obesity Anosmia Diarrhea Sore throat Respiratory tract infection due to COVID-19 virus Ovarian cyst Vitamin D deficiency Impaired fasting glucose History of migraine Surgical History H/O wisdom tooth extraction Family History Father Diabetes mellitus Hypertension Mother Hypertension Brother No problems noted. Brother Multiple sclerosis Maternal Grandmother Diabetes mellitus Maternal Grandfather Diabetes mellitus Paternal Grandfather Diabetes mellitus Paternal Grandmother Diabetes mellitus Brother No problems noted. Social History Household Members: None Household Members Other:: Husky dog Housing: Apartment 75 years or older and lives alone: No Alcohol intake: current Alcohol intake frequency: holidays/special occasions only Alcohol type: beer, wine and hard liquor Patient Tobacco Use Status: Never used Tobacco e-Cigarette/Vaping Use: Currently Using Substance Use Type: Marijuana service: No Current occupational status: employed Current occupation: [employer] Cognitive needs: No Hearing needs: No Vision needs: No Female Reproductive History Menstrual Age of Menarche: 8 Review of Systems Const All systems reviewed & are unremarkable except as noted in HPI and below Physical Exam Extrem Other: Patient is alert, oriented, and in no acute distress. Neuro: Median, ulnar, radial nerves motor and sensory intact and sensation is normal to the tips of all digits. Vascular: Cap refill brisk Pain: Patient reports tenderness to palpation over the third dorsal compartment of the wrist. No snuffbox tenderness. ROM: ROM of the L hand and wrist full and intact, but painful at the wrist Skin: No lacerations or abrasions. General: No ecchymosis, erythema, or evidence of infection. Mild edema of the dorsal L wrist when compared to the right. Psych: Appears grossly normal Affect normal Attitude cooperative Results Reviewed Results Reviewed: X-rays taken in the emergency department on 09 11 and independently reviewed by me, Eugene Hall PA-C, demonstrate widening of the scapholunate joint of the left wrist. No fracture or other acute bony abnormality noted. Assessment & Plan Assessment & Plan (1) Scapholunate dissociation of left wrist: Code(s): M25.332 - Other instability, left wrist Category: Medical Plan 1. Scapholunate dissocation of L wrist Patient reports no particular wrist injury that started her pain, either recent or remote Patient is educated about this condition Given patient age and work, MRI ordered to assess scapholunate ligament status Patient given velcro wrist splint to wear with daytime activites Patient also given a 2 pound weight restriction in her L hand until follow up Patient is amenable to this plan Patient will follow up after MRI to discuss results and any treatment options available, sooner with any acute concerns. Orders: Orders MR wrist LT wo con Today M25.332 - Other instability, left wrist Coding Level of Care Code New Pt Level 3 (70148) Diagnoses Scapholunate dissociation of left wrist M25.332
== END 2023-10-04 09:41 | disposition home or self-care (01) ==
PROVIDERS: PCP Internal Medicine
DX: M25.332 Other instability, left wrist (principal)
CPT/HCPCS: 99203

== ENCOUNTER → 2023-10-04 08:42 | Outpatient (BNVA) | payer OTHER, SELFPAY | PROVIDERS: PCP Internal Medicine | DX: M25.532 Pain in left wrist (principal) | CPT/HCPCS: 99202 ==

== ENCOUNTER 2023-10-08 10:16 | Outpatient (AMB) | payer OTHER, SELFPAY ==
--- NOTE | 2023-10-08 10:23 | MHC.PC.OV ---
Vital Signs 10/08/23 10:28 Height 5 ft 4 in Weight 240 lb BMI 41.2 BP 118/66 Blood Pressure Location Rt brachial Position Sitting Pulse 12 L Pulse Source Pulse Oximeter Pulse Oximetry (%) 99 Oxygen Delivery Method Room Air Intake Visit Reasons: Form -Service Animal Intake Note: Patient would like a letter stating she is allowed to have her dog. Patient states she has a denial letter stating the dose is too high for the wegovy medication. Patient reports they want her to start on 2.5. Store Facility Technician Required: No Accompanied by: Self / Same As Patient Allergies No Known Allergies Allergy (Verified 10/08/23 10:35) Tobacco use date assessed: 09/20/23 Dental Screening Dental Screen Date: 09/20/23 HPI HPI Comments History of Present Illness Details The patient is a a 28 year old female with a past medical history of obesity, prediabetes, kidney stones, depression & anxiety presenting for follow up She requests a letter for straightener and aligner dog due to depression & anxiety She has seen a therapist in the past Prediabetes-reviewed recent labs. She was prescribed wegovy but it has been on back order. she is frustrated by weight. Tries to eat healthly, exercise. At one point considered weight loss surgery. Interested in GLP History of nephrolithiasis s/p stent, stent removal ROS CONSTITUTIONAL: Denies weight loss, fever and chills. HEENT: Denies changes in vision and hearing. RESPIRATORY: Denies SOB and cough. CV: Denies palpitations and CP GI: Denies abdominal pain, nausea, vomiting and diarrhea. : Denies dysuria and urinary frequency. MSK: Denies new myalgia and joint pain. SKIN: Denies rash and pruritus. NEUROLOGICAL: Denies headache PSYCHIATRIC: Denies recent changes in mood. PHYSICAL EXAM: GENERAL: Alert and oriented x 3. NAD EYES: EOMI. Anicteric. HENT: Moist mucous membranes. No scleral icterus. No cervical lymphadenopathy. LUNGS: Clear to auscultation bilaterally. CARDIOVASCULAR: Regular rate and rhythm. No murmur. No JVD. ABDOMEN: Soft, non-tender +bs EXTREMITIES: No edema. Non-tender. SKIN: No rashes or lesions. Warm. NEUROLOGIC: No focal neurological deficits. CN II-XII grossly intact PSYCHIATRIC: Cooperative. Appropriate mood and affect [facility] Medical History Obesity Back pain Depression GERD (gastroesophageal reflux disease) Anxiety and depression Morbid obesity Anosmia Diarrhea Sore throat Respiratory tract infection due to COVID-19 virus Ovarian cyst Vitamin D deficiency Impaired fasting glucose History of migraine Surgical History H/O wisdom tooth extraction Family History Father Diabetes mellitus Hypertension Mother Hypertension Brother No problems noted. Brother Multiple sclerosis Maternal Grandmother Diabetes mellitus Maternal Grandfather Diabetes mellitus Paternal Grandfather Diabetes mellitus Paternal Grandmother Diabetes mellitus Brother No problems noted. Social History Household Members: None Household Members Other:: Husky dog Housing: Apartment 75 years or older and lives alone: No Alcohol intake: current Alcohol intake frequency: holidays/special occasions only Alcohol type: beer, wine and hard liquor Patient Tobacco Use Status: Never used Tobacco e-Cigarette/Vaping Use: Currently Using Substance Use Type: Marijuana service: No Current occupational status: employed Current occupation: [employer] Cognitive needs: No Hearing needs: No Vision needs: No Female Reproductive History Menstrual Age of Menarche: 8 Questionnaire Thrive Questionnaire Date Thrive assessed: 09/20/23 JUAN-7 AMB Questionnaire JUAN-7 Date JUAN - 7 assessed: 09/20/23 Source: Developed by Drs. Reji Cuenca, Emilia Lundberg, Hernan Kate and colleagues, with an educational marcus from [employer]. Physical exam (Primary Care) Vital Signs: Last Vital Signs Pulse 12 L 10/08/23 10:28 BP 118/66 10/08/23 10:28 Pulse Ox 99 10/08/23 10:28 Oxygen Delivery Method Room Air 10/08/23 10:28 BMI result Body Mass Index 41.2 Tobacco/Smoking Status: Tobacco use Status Tobacco use date assessed 09/20/23 10/08/23 10:24 Patient Tobacco Use Status Never used Tobacco 10/08/23 10:24 e-Cigarette/Vaping Use Currently Using 10/08/23 10:24 Thrive Assessment: Date of Thrive Assessment Date Thrive assessed 09/20/23 10/08/23 10:24 Assessment and Plan Assessment & Plan (1) Anxiety and depression: Code(s): F41.9 - Anxiety disorder, unspecified; F32.A - Depression, unspecified Plan: Letter provided (2) Morbid obesity: Code(s): E66.01 - Morbid (severe) obesity due to excess calories Plan: start wegovy once avaialable Medications: New Wegovy (semaglutide (weight loss)) administer weeks 1 through 4 of therapy 0.25 mg (0.5 mL) subcut QWEEK 2 mL 0RF NS Coding Level of Care Code Est Pt Level 4 (06414) Diagnoses Anxiety and depression F41.9; F32.A Morbid obesity E66.01
[2023-10-08 10:28] VITALS: BP 118/66; PULSE 12; O2SAT 99; BMI 41.2
== END 2023-10-08 11:19 | disposition home or self-care (01) ==
PROVIDERS: PCP Internal Medicine; Visit Provider Internal Medicine
DX: F41.9 Anxiety disorder, unspecified (principal); F32.A Depression, unspecified; E66.01 Morbid (severe) obesity due to excess calories; Z68.44 Body mass index [BMI] 60.0-69.9, adult
CPT/HCPCS: 99214

== ENCOUNTER 2023-10-22 11:13 | Outpatient (REF) | payer OTHER, SELFPAY ==
--- NOTE | ~2023-10-22 | US_ITS ---
EXAMINATION: US RETROPERITONEAL COMPLETE (RENAL) CLINICAL INFORMATION: Renal calculus. COMPARISON: Abdominal ultrasound dated 04/01/2023; CT abdomen and pelvis dated 03/30/2023. TECHNIQUE: Real-time imaging of the kidneys and bladder. Imaging is limited by body habitus. FINDINGS: RIGHT KIDNEY: 10.8 x 4.7 x 5.1 cm (SAG x AP x TRV). The kidney is normal in size, contour, and echogenicity. Renal cortical thickness is normal. No calculi or focal parenchymal lesions. No hydronephrosis. LEFT KIDNEY: 10.3 x 5.7 x 4.4 cm (SAG x AP x TRV). The kidney is normal in size, contour, and echogenicity. Renal cortical thickness is normal. No calculi or focal parenchymal lesions. No hydronephrosis. US/US renal BI IMPRESSION: Unremarkable examination. Electronically signed by: Javan Guevara MD 11/07/2023 12:56 PM EDT
== END 2023-10-22 11:14 | disposition home or self-care (01) ==
LOC: HO.US 11:13
PROVIDERS: PCP Internal Medicine; Visit Provider Urology
DX: N20.0 Calculus of kidney (principal)
CPT/HCPCS: 76775

== ENCOUNTER 2023-11-26 08:13 | Outpatient (REF) | payer OTHER, SELFPAY ==
--- NOTE | ~2023-11-26 | MR_ITS ---
EXAMINATION: MRI WRIST WITHOUT CONTRAST, LEFT CLINICAL INFORMATION: Wrist pain. Instability. COMPARISON: X-rays 10/01/2023. TECHNIQUE: MRI of the wrist without contrast is performed in a 1.5 Inessa high-field scanner. FINDINGS: BONE/JOINTS: Scapholunate interval is prominent measuring 4 mm transverse, correlating with x-ray findings. There is intermediate T2 signal in the scapholunate ligament, suggesting degeneration. No measurable tear is identified. At the distal radioulnar joint, the distal ulna is partially dorsally subluxed with respect to the radius. There are subcortical cysts/edema in the anterior aspect of the distal ulna, appearing degenerative. The distal ulnar bone groove is not clearly visualized. Trace distal radioulnar joint effusion. No evidence of acute fracture. No aggressive marrow-replacing lesion. Small fluid in the wrist joint. MUSCLE/TENDONS: The extensor carpi ulnaris tendon courses along the medial aspect of the distal ulna. Findings are suspicious for an ECU sub-sheath tear. The tendons otherwise appear intact. LIGAMENTS: Scapholunate ligament findings, as detailed above. There is intermediate T2 signal in the volar radioulnar ligament and the ulnar attachments of the TFCC, which could reflect degeneration or sprain/partial tear. There is intermediate T2 signal in the triangular fibrocartilage with proximal surface irregularity suggesting degeneration and possible fraying. The dorsal radioulnar ligament is not well seen with distortion and abnormal signal in the expected region of the ligament, suggesting sprain/tearing. The lunotriquetral ligament appears intact. MEDIAN NERVE: Within normal limits. GUYON'S CANAL: Unremarkable. MR/MR wrist LT wo con IMPRESSION: 1. Partial dorsal subluxation of the distal ulna with respect to the radius at the distal radioulnar joint. Degenerative cysts/edema in the anterior aspect of the distal ulna. 2. The extensor carpi ulnaris tendon courses along the medial/ulnar aspect of the distal ulna. Findings are suspicious for an ECU subsheath tear. 3. Triangular fibrocartilage complex abnormal findings with sprain/partial tear of the ulnar attachments of the TFCC and the volar radioulnar ligament. Triangular fibrocartilage degeneration with possible proximal surface fraying. The dorsal radioulnar ligament is not well seen/evaluated, the findings are concerning for sprain/tearing. Electronically signed by: Ruiz Jj MD 11/27/2023 11:01 AM EDT RP
== END 2023-11-26 08:14 | disposition home or self-care (01) ==
LOC: HO.MRI 08:13
PROVIDERS: PCP Internal Medicine
DX: M25.332 Other instability, left wrist (principal)
CPT/HCPCS: 73221

== ENCOUNTER 2023-12-03 09:56 | Outpatient (REF) | payer OTHER, SELFPAY ==
--- NOTE | ~2023-12-03 | XR_ITS ---
EXAMINATION: XR WRIST, RIGHT CLINICAL INFORMATION: M25.531 - Pain in right wrist COMPARISON: 10/01/2023. TECHNIQUE: AP view of both wrists. AP lateral, and oblique views of the right wrist. FINDINGS: No fracture, dislocation, or focal bone lesion. Normal bone mineralization. Wrist joints appear symmetric bilaterally. Normal alignment. Carpal bones intact. No arthritic changes. Soft tissues appear normal. XR/XR wrist RT w scaphoid IMPRESSION: Normal bilateral wrists. Electronically signed by: Khanh Castorena MD 02/10/2024 10:56 AM TIFFANIE
== END 2023-12-03 09:57 | disposition home or self-care (01) ==
LOC: HO.HOSX 09:56
PROVIDERS: PCP Internal Medicine; Visit Provider Orthopaedic Surgery
DX: M25.531 Pain in right wrist (principal); M77.8 Other enthesopathies, not elsewhere classified
CPT/HCPCS: 73110; 99212

== ENCOUNTER → 2023-12-03 12:46 | Outpatient (BNV) | payer OTHER, SELFPAY | PROVIDERS: PCP Internal Medicine; Visit Provider Radiology Diagnostic Radiology | DX: M25.531 Pain in right wrist (principal) | CPT/HCPCS: 73110 ==

== ENCOUNTER 2023-12-03 12:57 | Outpatient (AMB) | payer OTHER, SELFPAY ==
[2023-12-03 13:00] VITALS: BMI 41.2
--- NOTE | 2023-12-03 13:00 | A.OFFVIS_ITS ---
Vital Signs 12/03/23 13:00 Height 5 ft 4 in Weight 240 lb BMI 41.2 Intake Visit Reasons: OV-MRI Wrist LT-Review Intake Note: Reanna is a 28 yo right hand dominant female who presents today to discuss left wrist MRI results. Allergies No Known Allergies Allergy (Verified 12/03/23 13:01) HPI HPI OV-MRI Wrist LT-Review: Details: Reanna is a 28 year old right hand dominant woman who presents for an MRI review of her left wrist. She complains of pain in her left wrist/distal dorsal forearm beginning on ~09/24/23. She was seen in the ED on 10/01/23 for her wrist pain & hand numbness. She says she initially had some numbness in her hand, but that resolved. Episodes of numbness and tingling in her left hand are now only occasional and perhaps once or twice a week. She was seen by ERIC Knight on 10/04/23 who was concerned about some possible scapholunate interval widening and ordered an MRI of her wrist. She complains of some pain in the dorsal ulnar aspect of her wrist/distal forearm, worse with lifting or gripping activities. She demonstrates her area of discomfort to be extending from the dorsal wrist proximally to about 8 or 9 cm proximal to the wrist joint. She says her pain has improved since it began, she says the pain used to wake her up at night, along with numbness, but this has improved. 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 She says she worked in a [place] [facility] kitchen until ~08/2023, and she says this involved frequent heavy lifting activities. She says she has been working a new job in a kitchen since September, and she continues to attend work. She reports some difficulties at her job due to her pain, and says she recently dropped a plate. [facility] Medical History Obesity Back pain Depression GERD (gastroesophageal reflux disease) Anxiety and depression Morbid obesity Anosmia Diarrhea Sore throat Respiratory tract infection due to COVID-19 virus Ovarian cyst Vitamin D deficiency Impaired fasting glucose History of migraine Surgical History H/O wisdom tooth extraction Family History Father Diabetes mellitus Hypertension Mother Hypertension Brother No problems noted. Brother Multiple sclerosis Maternal Grandmother Diabetes mellitus Maternal Grandfather Diabetes mellitus Paternal Grandfather Diabetes mellitus Paternal Grandmother Diabetes mellitus Brother No problems noted. Social History (Updated 11/27/23 @ 15:21 by DARLING Cisneros) Household Members: None Household Members Other:: Husky dog Housing: Apartment 75 years or older and lives alone: No Alcohol intake: current Alcohol intake frequency: holidays/special occasions only Alcohol type: beer, wine and hard liquor Patient Tobacco Use Status: Never used Tobacco e-Cigarette/Vaping Use: Currently Using Substance Use Type: Marijuana service: No Current occupational status: employed Current occupation: rt handed, [employer] Cognitive needs: No Hearing needs: No Vision needs: No Female Reproductive History Menstrual Age of Menarche: 8 Review of Systems Const All systems reviewed & are unremarkable except as noted in HPI and below Physical Exam Vital Signs: BMI result Body Mass Index 41.2 Const General: cooperative, healthy appearing and no acute distress Orientation/consciousness: patient oriented x3 HEENT Head: Yes normocephalic and Yes atraumatic Eyes EOM: EOMs intact bilaterally Resp Effort & Inspection: normal respiratory effort and able to speak in complete sentences Cardio Jugular venous distension: no JVD Skin General skin exam: turgor normal Rashes: no rashes Neuro General: patient oriented x3 Extrem Other: Evaluation of Left Upper Extremity: The patient is alert, oriented, and in no acute distress Neuro: Median, Ulnar, Radial nerves motor and sensory intact and sensation is normal to the tips of all digits today in clinic No thenar or intrinsic wasting Good APB muscle belly firing and good finger cross Vascular: Cap refill brisk ROM: She can make a fist and extend all her digits without pain No locking or catching No lacerations or abrasions. No Ecchymosis. No Erythema or evidence of infection. No visible swelling. He is 5 ft 4 and weighs 240 lb. No tenderness over the 1st dorsal compartment Negative Sonia test No tenderness over the FCU tendon our pisiform. No foveal tenderness today. The DRUJ was stable on exam. She did have some mild tenderness over the ECU tendon but no tenderness over the DRUJ. Area of maximal discomfort is in the dorsal aspect of the distal forearm extending from the wrist proximally about 8-9 cm. She is most tender to palpation over the dorsal aspect of the distal forearm perhaps 3-4 cm proximal to the dorsal aspect of the wrist, likely in the areas of the myotendinous junctions of the 3rd and 4th dorsal compartments. She also has some tenderness over the dorsal aspect of the ECU tendon and had some increased discomfort with resisted wrist extension and ulnar deviation. There was no palpable snapping or subluxation of the ECU tendon with prono- supination. She had full and symmetrical prono-supination without discomfort. She had full flexion and extension at the wrists that were also symmetrical and without discomfort Radiographs: 3 views of the right wrist were taken and viewed by me today in clinic, and compared to recent radiographs of her left wrist. They show no fractures or dislocations. There is apparent widening of the scapholunate interval, however when measured on the pencil waste baler view the scapholunate intervals are about 3 mm bilaterally.. MRI WRIST WITHOUT CONTRAST, LEFT FINDINGS: BONE/JOINTS: Scapholunate interval is prominent measuring 4 mm transverse, correlating with x-ray findings. There is intermediate T2 signal in the scapholunate ligament, suggesting degeneration. No measurable tear is identified. At the distal radioulnar joint, the distal ulna is partially dorsally subluxed with respect to the radius. There are subcortical cysts/edema in the anterior aspect of the distal ulna, appearing degenerative. The distal ulnar bone groove is not clearly visualized. Trace distal radioulnar joint effusion. No evidence of acute fracture. No aggressive marrow-replacing lesion. Small fluid in the wrist joint. MUSCLE/TENDONS: The extensor carpi ulnaris tendon courses along the medial aspect of the distal ulna. Findings are suspicious for an ECU sub-sheath tear. The tendons otherwise appear intact. LIGAMENTS: Scapholunate ligament findings, as detailed above. There is intermediate T2 signal in the volar radioulnar ligament and the ulnar attachments of the TFCC, which could reflect degeneration or sprain/partial tear. There is intermediate T2 signal in the triangular fibrocartilage with proximal surface irregularity suggesting degeneration and possible fraying. The dorsal radioulnar ligament is not well seen with distortion and abnormal signal in the expected region of the ligament, suggesting sprain/tearing. The lunotriquetral ligament appears intact. MEDIAN NERVE: Within normal limits. GUYON'S CANAL: Unremarkable. IMPRESSION: 1. Partial dorsal subluxation of the distal ulna with respect to the radius at the distal radioulnar joint. Degenerative cysts/edema in the anterior aspect of the distal ulna. 2. The extensor carpi ulnaris tendon courses along the medial/ulnar aspect of the distal ulna. Findings are suspicious for an ECU subsheath tear. 3. Triangular fibrocartilage complex abnormal findings with sprain/partial tear of the ulnar attachments of the TFCC and the volar radioulnar ligament. Triangular fibrocartilage degeneration with possible proximal surface fraying. The dorsal radioulnar ligament is not well seen/evaluated, the findings are concerning for sprain/tearing. Electronically signed by: Ruiz Jj MD 11/27/2023 Psych Appearance: grossly normal Affect: normal affect Attitude: cooperative Assessment & Plan Assessment & Plan (1) Left wrist tendinitis: Code(s): M77.8 - Other enthesopathies, not elsewhere classified Category: Medical Plan Assessment & Plan: 1. Left dorsal distal forearm tenderness and discomfort -- Appears most consistent with some inflammation at the myotendinous junctions of the 4th dorsal compartment tendons and possibly the ECU. This appears to be her area of chief complaint. -- ECU also appears to be passing along the ulnar aspect of the ulna on MRI, and there some inflammation in the groove of the ulna that suggests a possible sub sheath tear. She has no pain or appreciable subluxation of the ECU tendon with active prono-supination. Etiology unclear, onset ~09/24/23 -- the MRI is also indeterminate for possible TFCC sprain or tear. No foveal tenderness, stable DRUJ, and painless prono-supination on exam today. I educated her about this condition I discussed non-operative treatment options We did talk about a possible steroid injection to be given about the tendons of the 4th dorsal compartment proximal to the wrist joint. She is not really interested in a steroid injection today and would rather try OT. 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 She will follow up prn. If her symptoms persist or worsen we may consider a steroid injection Please note that greater than 45 minutes was spent with this patient evaluating the patient, reviewing her MRI and radiographs, formulating a treatment plan and documenting the visit. Scribed for Jessica Marie MD by True Maynard, medical lab assistant, on 12/03/23 at 1:15 PM, EST. Orders: Orders XR wrist RT w scaphoid Today M25.531 - Pain in right wrist Coding Level of Care Code Est Pt Level 5 (02336) Diagnoses Left wrist tendinitis M77.8
== END 2023-12-03 13:34 | disposition home or self-care (01) ==
PROVIDERS: PCP Internal Medicine; Visit Provider Orthopaedic Surgery
DX: M77.8 Other enthesopathies, not elsewhere classified (principal)
CPT/HCPCS: 99215

== ENCOUNTER 2023-12-17 10:28 | Outpatient (AMB) | payer OTHER, SELFPAY ==
--- NOTE | 2023-12-17 10:37 | A.OFFPC_ITS ---
Vital Signs 12/17/23 10:44 Height 5 ft 4 in Weight 247 lb 4 oz BMI 42.4 BP 126/84 Blood Pressure Location Rt brachial Position Sitting Respiration 16 Pulse 84 Pulse Source Pulse Oximeter Pulse Oximetry (%) 98 Oxygen Delivery Method Room Air Intake Visit Reasons: Med Management Intake Note: Follow up. Headaches for the past month. Allergies symmetric Allergy (Uncoded 12/17/23 10:41) Rash Tobacco use date assessed: 09/20/23 Dental Screening Dental Screen Date: 09/20/23 HPI HPI Comments History of Present Illness Details The patient is a a 28 year old female with a past medical history of obesity, prediabetes, kidney stones, depression & anxiety presenting for follow up Patient reports headaches almost daily for the past month. deep pressure behind the eyes, pounding at times. Reports eye exam is up to date. Chronically snores- does not think that has changed. She is unsure if she has any particular allergies. History of migraines remotely-at least 10 years ago. Prediabetes-reviewed recent labs. She was prescribed wegovy but it has been on back order-she still has not received. she is frustrated by weight. Tries to eat healthly, exercise. At one point considered weight loss surgery. Interested in GLP History of nephrolithiasis s/p stent, stent removal ROS see HPI PHYSICAL EXAM: GENERAL: Alert and oriented x 3. NAD EYES: EOMI. Anicteric. HENT: Moist mucous membranes. No scleral icterus. No cervical lymphadenopathy. LUNGS: Clear to auscultation bilaterally. CARDIOVASCULAR: Regular rate and rhythm. No murmur. No JVD. ABDOMEN: Soft, non-tender +bs EXTREMITIES: No edema. Non-tender. SKIN: No rashes or lesions. Warm. NEUROLOGIC: No focal neurological deficits. CN II-XII grossly intact PSYCHIATRIC: Cooperative. Appropriate mood and affect [facility] Medical History Obesity Back pain Depression GERD (gastroesophageal reflux disease) Anxiety and depression Morbid obesity Anosmia Diarrhea Sore throat Respiratory tract infection due to COVID-19 virus Ovarian cyst Vitamin D deficiency Impaired fasting glucose History of migraine Surgical History H/O wisdom tooth extraction Family History Father Diabetes mellitus Hypertension Mother Hypertension Brother No problems noted. Brother Multiple sclerosis Maternal Grandmother Diabetes mellitus Maternal Grandfather Diabetes mellitus Paternal Grandfather Diabetes mellitus Paternal Grandmother Diabetes mellitus Brother No problems noted. Social History Household Members: None Household Members Other:: Husky dog Housing: Apartment Alcohol intake: current Alcohol intake frequency: holidays/special occasions only Alcohol type: beer, wine and hard liquor Patient Tobacco Use Status: Never used Tobacco e-Cigarette/Vaping Use: Currently Using Substance Use Type: Marijuana service: No Current occupational status: employed Current occupation: rt handed, [employer] Cognitive needs: No Hearing needs: No Vision needs: No Female Reproductive History Menstrual Age of Menarche: 8 Questionnaire PHQ-9 Over the last 2 weeks, how often have you been bothered by any of the following problems? 1. Little interest or pleasure in doing things: more than half the days 2. Feeling down, depressed, or hopeless: not at all 3. Trouble falling or staying asleep, or sleeping too much: more than half the days 4. Feeling tired or having little energy: more than half the days 5. Poor appetite or overeating: nearly every day 6. Feeling bad about yourself - or that you are a failure or have let yourself or your family down: not at all 7. Trouble concentrating on things, such as reading the newspaper or watching television: not at all 8. Moving or speaking so slowly that other people could have noticed. Or the opposite - being so fidgety or restless that you have been moving around a lot more than usual: not at all 9. Thoughts that you would be better off or of hurting yourself in some way: not at all Total score: 9 Depression Screening Interpretation: Positive Depression Screening Follow-up: New Medication prescribed Depression Screening Done: Yes [id number] - PHQ-9 Billing: Yes Source: Developed by Drs. Reji Cuenca, Emilia Lundberg, Hernan Kate and colleagues, with an educational marcus from [employer]. Thrive Questionnaire Date Thrive assessed: 11/17/23 I am a: Patient What is your living situation today?: I have a steady place to live Within the past 12 months, did the food you bought not last and you didn't have the money to get more?: Never true Within the past 12 months, did you worry whether your food would run out before you got money to buy more?: Never true Do you have trouble paying for medicines?: No Do you have trouble getting transportation to medical appointments?: No Do you have trouble paying your heating and electricity bill?: No Do you have trouble taking care of your child, family member or friend?: No Do you have trouble with day-to-day activities such as bathing, preparing meals, shopping, managing finances, etc.?: No Are you currently unemployed and looking for a job?: No Are you interested in more education?: Yes Please select the resources that you would like help with: None Currently or been in a relationship where the following occur: No concerns reported THRIVE Score: 0 JUAN-7 AMB Questionnaire JUAN-7 Date JUAN - 7 assessed: 09/20/23 Source: Developed by Drs. Reji Cuenca, Emilia Lundberg, Hernan Kate and colleagues, with an educational marcus from [employer]. Physical exam (Primary Care) Vital Signs: Last Vital Signs Pulse 84 12/17/23 10:44 Resp 16 12/17/23 10:44 BP 126/84 12/17/23 10:44 Pulse Ox 98 12/17/23 10:44 Oxygen Delivery Method Room Air 12/17/23 10:44 BMI result Body Mass Index 42.4 Tobacco/Smoking Status: Tobacco use Status Tobacco use date assessed 09/20/23 12/17/23 10:39 Patient Tobacco Use Status Never used Tobacco 12/17/23 10:39 e-Cigarette/Vaping Use Currently Using 12/17/23 10:39 PHQ-9: PHQ-9 Score PHQ-9: Total score 9 12/17/23 11:04 Depression Screening Interpretation: Positive Depression Screening Follow-up: New Medication prescribed Thrive Assessment: Date of Thrive Assessment Date Thrive assessed 11/17/23 12/17/23 10:39 Currently or been in a relationship where the following occur: No concerns reported Coding Level of Care Code Est Pt Level 4 (12040) Diagnoses Other headache syndrome G44.89 Headache type: other headache syndrome Apnea R06.81 Assessment & Plan Assessment & Plan (1) Headache: Code(s): R51.9 - Headache, unspecified Category: Medical Qualifiers: Headache type: other headache syndrome Qualified Code(s): G44.89 - Other headache syndrome Plan: New headaches. trial pamelor. Imitrex prn. sleep study. recommend imaging if not improving (2) Apnea: Code(s): R06.81 - Apnea, not elsewhere classified Category: Medical Plan: see above Orders: Orders RT home sleep study 12/17/23 R06.81 - Apnea, not elsewhere classified, R06.83 - Snoring, R51.9 - Headache, unspecified Medications: New sumatriptan succinate (Imitrex) take 1 tab at onset of headache; if no relief may repeat 1 tab after at least 2 hrs; max = 4 tabs/24 hr PO 30 tabs 3RF nortriptyline 25 mg PO BEDTIME 90 caps 3RF
[2023-12-17 10:44] VITALS: BP 126/84; PULSE 84; RESP 16; O2SAT 98; BMI 42.4
== END 2023-12-17 11:07 | disposition home or self-care (01) ==
PROVIDERS: PCP Internal Medicine; Visit Provider Internal Medicine
DX: G44.89 Other headache syndrome (principal); R06.81 Apnea, not elsewhere classified

== ENCOUNTER → 2023-12-17 10:28 | Outpatient (BNVA) | payer OTHER, SELFPAY | PROVIDERS: PCP Internal Medicine; Visit Provider Internal Medicine | DX: R51.9 Headache, unspecified (principal); R06.81 Apnea, not elsewhere classified | CPT/HCPCS: 99212 ==

== ENCOUNTER 2024-01-28 16:26 | Outpatient (AMB) | payer OTHER, SELFPAY ==
--- NOTE | 2024-01-28 16:24 | MHC.PC.OV ---
Intake Visit Reasons: phone f/up Fre[employer]outer Required: No Allergies symmetric Allergy (Uncoded 12/17/23 10:41) Rash Tobacco use date assessed: 09/20/23 Dental Screening Dental Screen Date: 09/20/23 HPI HPI Comments History of Present Illness Details The patient is a a 28 year old female with a past medical history of obesity, prediabetes, kidney stones, depression & anxiety presenting for follow up Patient reports continuation of headaches almost daily for the past 2 months. Has deep pressure behind the eyes, pounding at times. Reports eye exam is up to date. Chronically snores-does not think that has changed. She is unsure if she has any particular allergies. History of migraines remotely-at least 10 years ago. Requests neurology referral Prediabetes-reviewed recent labs. She was prescribed wegovy but has still not received this-first ?stock issue now has been ?denied by insurance. she is frustrated by weight. Tries to eat healthly, exercise. At one point considered weight loss surgery. Interested in GLP History of nephrolithiasis s/p stent, stent removal ROS see HPI PHYSICAL EXAM: Telehealth [facility] Medical History Obesity Back pain Depression GERD (gastroesophageal reflux disease) Anxiety and depression Morbid obesity Anosmia Diarrhea Sore throat Respiratory tract infection due to COVID-19 virus Ovarian cyst Vitamin D deficiency Impaired fasting glucose History of migraine Surgical History H/O wisdom tooth extraction Family History Father Diabetes mellitus Hypertension Mother Hypertension Brother No problems noted. Brother Multiple sclerosis Maternal Grandmother Diabetes mellitus Maternal Grandfather Diabetes mellitus Paternal Grandfather Diabetes mellitus Paternal Grandmother Diabetes mellitus Brother No problems noted. Social History Household Members: None Household Members Other:: Husky dog Housing: Apartment 75 years or older and lives alone: No Alcohol intake: current Alcohol intake frequency: holidays/special occasions only Alcohol type: beer, wine and hard liquor Patient Tobacco Use Status: Never used Tobacco e-Cigarette/Vaping Use: Currently Using Substance Use Type: Marijuana service: No Current occupational status: employed Current occupation: rt handed, [employer] Cognitive needs: No Hearing needs: No Vision needs: No Female Reproductive History Menstrual Age of Menarche: 8 Questionnaire Thrive Questionnaire Date Thrive assessed: 11/17/23 JUAN-7 AMB Questionnaire JUAN-7 Date JUAN - 7 assessed: 09/20/23 Source: Developed by Drs. Reji Cuenca, Emiila uLndberg, Hernan Kate and colleagues, with an educational marcus from [employer]. Physical exam (Primary Care) Tobacco/Smoking Status: Tobacco use Status Tobacco use date assessed 09/20/23 01/28/24 16:24 Patient Tobacco Use Status Never used Tobacco 01/28/24 16:24 e-Cigarette/Vaping Use Currently Using 01/28/24 16:24 Thrive Assessment: Date of Thrive Assessment Date Thrive assessed 11/17/23 01/28/24 16:24 Telehealth Telehealth Telehealth Platform: [facility] Location of provider rendering services: practice address Location of patient: address on file Patient Identification confirmed using: Name, : Yes Telehealth method: voice only Patient verbally consented to treatment: Yes Patient verbally consented to billing insurance company: Yes Patient informed of any privacy concerns related to visit: Yes Minutes spent on Phone/Video with Pt.: 23 Coding Level of Care Code Tele Est Pt Level 3 (70518) Diagnoses Migraine without status migrainosus, not intractable, unspecified migraine type G43.909 Intractability: not intractable Migraine type: unspecified Status migrainosus presence: without status migrainosus Morbid obesity E66.01 Assessment & Plan Assessment & Plan (1) Migraine headache: Code(s): G43.909 - Migraine, unspecified, not intractable, without status migrainosus Category: Medical Qualifiers: Intractability: not intractable Migraine type: unspecified Status migrainosus presence: without status migrainosus Qualified Code(s): G43.909 - Migraine, unspecified, not intractable, without status migrainosus Plan: On pamelor Imitrex prn Referral placed to neurology for increased frequency and severity of headaches (2) Morbid obesity: Code(s): E66.01 - Morbid (severe) obesity due to excess calories Category: Medical Plan: Wegovy sent yesterday. Unclear on authorization status. Orders: Referrals Neurology Referral G43.909 - Migraine, unspecified, not intractable, without status migrainosus
== END 2024-01-28 17:05 | disposition home or self-care (01) ==
LOC: HO.HMCFM 16:27
PROVIDERS: PCP Internal Medicine; Visit Provider Internal Medicine
DX: G43.909 Migraine, unspecified, not intractable, without status migrainosus (principal); E66.01 Morbid (severe) obesity due to excess calories

== ENCOUNTER 2024-02-25 14:40 | Outpatient (RCR) | payer OTHER, SELFPAY ==
--- NOTE | 2024-02-18 14:59 | MHC.OT.EP ---
[address] [phone] Occupational Therapy Plan of Care Patient Name: Reanna Mccullough Date of Evaluation: 02/18/24 Diagnosis: Left Wrist Tendinitis Pain Location: 6/10 resting pain ache over dorsal wrist Occasional stretching/pulling/tearing through dorsal wrist and distal forearm Pain Score: 6 Pain Scale Used: Numeric (0 - 10) Aggravating Factors: Gripping, heavy lifting Alleviating Factors: KT tape, Tylenol Assessment: 28 yo female was seen in ED in September with onset of wrist pain and hand numbness. She was seen by ERIC Kidd in ortho and MRI recommended at that time for further assessment of DRUJ. She had follow-up w/ Dr Marie 12/03/23 to review MRI (see results below) and discuss further management. MRI shows She has been referred to OT for normalizing function and strengthening. 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 No signs of DRUJ instability, but ulnar styloid does feel depressed compared to right side. She has moderate pain at rest, increases w/ gripping and heavy use/lifting, and has started to modify work tasks and leisure tasks (decreased game and phone time) with some relief. I anticipate she will do well w/ course of OT to continue education for activity modification and joint protection, with progression of functional strengthening and participation in daily activities. Wrist MRI IMPRESSION: 1. Partial dorsal subluxation of the distal ulna with respect to the radius at the distal radioulnar joint. Degenerative cysts/edema in the anterior aspect of the distal ulna. 2. The extensor carpi ulnaris tendon courses along the medial/ulnar aspect of the distal ulna. Findings are suspicious for an ECU subsheath tear. 3. Triangular fibrocartilage complex abnormal findings with sprain/partial tear of the ulnar attachments of the TFCC and the volar radioulnar ligament. Triangular fibrocartilage degeneration with possible proximal surface fraying. The dorsal radioulnar ligament is not well seen/evaluated, the findings are concerning for sprain/tearing. 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 Thank you once again for your referral.
--- NOTE | 2024-04-02 14:10 | MHC.OT.DC ---
[address] [phone] F: [phone] Occupational Therapy Discharge Note Patient Name: Reanna Mccullough Provider: Dr Jessica Marie Diagnosis: Left Wrist Tendinitis Date of Evaluation: 02/18/24 Date of Discharge: 04/02/24 Treatments to Date: 2 Discharge Status: Patient Elected to Stop Discharge Summary: 28 yo female was seen in ED in September with onset of left wrist pain and hand numbness. She was seen by ERIC Kidd and had follow-up w/ Dr Marie, then referred to OT for normalizing function and strengthening. She was seen for initial assessment and had one follow up visit w/ initiation of stabilization exercises, but did not follow up after second visit. We will be discharging at this time due to one month lapse. Electronically Signed By: Shi Dumont OTR/L CHT Please Sign and return to therapist, thank you for your referral.
== END 2024-04-02 14:11 | disposition home or self-care (01) ==
LOC: HO.OT 14:40
PROVIDERS: PCP Internal Medicine; Visit Provider Orthopaedic Surgery
DX: M77.8 Other enthesopathies, not elsewhere classified (principal)
CPT/HCPCS: 97110; 97140; 97165

== ENCOUNTER 2024-05-21 03:29 | Emergency (ER) | payer OTHER, SELFPAY ==
--- NOTE | ~2024-05-21 | CT_ITS ---
CLINICAL HISTORY: L flank pain, hx stones w stents Exam: CT abdomen and pelvis without intravenous contrast. Comparison: March 30, 2023. Findings: CT abdomen: No infiltrates are identified within the lung bases. No acute bony lesions. No renal or ureteral calculi identified. No hydronephrosis or perinephric stranding. Specifically, the right hydronephrosis and right ureteral calculus on prior study are no longer identified. Unenhanced liver, spleen, pancreas, gallbladder, and adrenal glands are unremarkable. Small bowel loops are of normal caliber. No free fluid or free air. CT pelvis: No bladder calculi. No colonic wall thickening or pericolonic inflammatory stranding. Appendix is normal. No free fluid or free air. Impression: No acute imaging explanation for the patient's symptoms. Specifically, no renal or ureteral calculi. This document has been electronically signed by: Ant Jain MD on 05/21/2024 06:07:37
[2024-05-21 03:32] VITALS: BP 137/89; PULSE 87; RESP 16; TEMP 36.5; O2SAT 100; BMI 39.5
[2024-05-21 04:00] LABS: Basophils Percent Auto 0.4 % (0-2); Eosinophils Percent Auto 0.5 % (0-4); Hematocrit 36.1 % (37.0-47.0); Hemoglobin 11.8 g/dl (12.0-16.0); Imm Gran Abs Auto 0.04 X10*3/uL (0.00-0.03); Imm Gran Pct Auto 0.5 % (0.0-0.4); Lymphocytes Absolute Auto 1.6 X10*3/uL (1.2-4.9); Lymphocytes Percent Auto 20.7 % (20-40); MANUAL DIFF FLAG NO; Mean Corpuscular HGB Conc 32.7 g/dl (31.0-35.0); Mean Corpuscular Hemoglobin 26.3 pg (27.0-33.0); Mean Corpuscular Volume 80.4 fL (80.0-98.0); Mean Platelet Volume 10.3 fL (9.4-12.3); Monocytes Absolute Auto 0.7 X10*3/uL (0.1-1.2); Neutrophils Absolute Auto 5.2 x10*3/uL (2.0-8.3); Neutrophils Percent Auto 68.9 % (45-73); Platelet Count 305 X10*3/uL (160-400); Red Blood Count 4.49 X10*6/uL (4.20-5.50); Red Cell Distribution Width 14.2 % (11.0-16.0); White Blood Count 7.5 X10*3/uL (4.8-10.8)
[2024-05-21 04:14] LABS: Appearance Urine Cloudy; Color Urine Yellow; Glucose Urine UA Negative (Negative); Leukocyte Esterase Urine Trace (Negative); Nitrite Urine Negative (Negative); PH 5.5 (5.0-9.0); UMIC TRIGGER UACC YES; Urine Blood Large (3+) (Negative); Urine Ketones Trace mg/dL (Negative); Urine Protein 30 (1+) mg/dL (Neg-Trace)
[2024-05-21 04:17] LABS: Bacteria Urine None Seen (None Seen); Hyaline Casts Urine 0-2 /LPF (0-2); RBC Urine >20 /HPF (0-2); UPreg QC Valid YES; Urine Pregnancy NEGATIVE (NEGATIVE); WBC Urine 0-5 /HPF (0-5)
[2024-05-21 04:25] LABS: Alanine Aminotransferase 10 U/L (0-31); Albumin Level 3.8 g/dL (3.5-5.0); Anion Gap 14 (12-20); Aspartate Amino Transferase 17 U/L (5-31); Bilirubin Direct < 0.2 mg/dL (0.0-0.5); Bilirubin Total 0.2 mg/dL (0.0-1.0); Blood Urea Nitrogen 14 mg/dL (9-16); Calcium 9.1 mg/dL (8.4-10.2); Carbon Dioxide 21 mmol/L (22-29); Chloride 109 mmol/L (96-108); Creatinine Clr Calc Pharmacy 121.4; Estimated Glomerular Filt Rate > 60; Glucose Random 137 mg/dL (60-115); Lipase 17 U/L (8-78); Potassium 3.5 mmol/L (3.3-5.1); Sodium 140 mmol/L (135-145); Total Protein 7.2 g/dL (6.5-8.0)
[2024-05-21 04:29] LABS: Alkaline Phosphatase 73 U/L (39-117)
--- NOTE | 2024-05-21 05:08 | ED.ABDPAIN ---
HPI - Abdominal Pain General Chief Complaint: Abdominal Pain Stated Complaint: kidney stones? Time Seen by Provider: 05/21/24 04:48 Source: patient Mode of arrival: ambulatory Limitations: no limitations History of Present Illness ED Provider: Dr. Juany Hoover HPI narrative: patient comes to the emergency room complaining of left-sided flank pain, nausea and vomiting. Some dysuria. Patient states that she has been taking Aleve with no significant relief. Patient states that she has a kidney stones in the past and it feels similar. Related Data Previous Rx's ?Medication ?Instructions ?Recorded acetaminophen 325 mg capsule 650 mg (2 x 325 mg) PO Q4H PRN 10/03/23 (Tylenol) pain #30 caps nortriptyline 25 mg capsule 25 mg PO BEDTIME #90 caps 12/17/23 sumatriptan succinate 50 mg tablet See Rx Instructions PO .COMPLEX 12/17/23 (Imitrex) #30 tabs Wegovy 0.25 mg/0.5 mL subcutaneous 0.25 mg (0.5 mL) subcut QWEEK #2 mL 01/22/24 pen injector (semaglutide (weight loss)) acetaminophen 500 mg tablet 500 mg PO Q6H PRN fever #20 tabs 05/21/24 ketorolac 10 mg tablet 10 mg PO Q8H #12 tabs 05/21/24 ondansetron HCl 4 mg tablet 4 mg PO Q8H PRN nausea and 05/21/24 vomiting #10 tabs Allergies Allergy/AdvReac Type Severity Reaction Status Date / Time symmetric Allergy Rash Uncoded 05/21/24 03:35 Review of Systems Review of Systems Constitutional : No Weight loss, No Fever, No Chills, No Night Sweats, No Fatigue, No Malaise ENT/Mouth : No Hearing loss, No Ear Pain, No Nasal Congestion, No Sinus Pain, No Hoarseness, No sore throat, No Rhinorrhea, No Swallowing Difficulty Eyes: No Eye Pain, No Swelling, No Redness, No Foreign Body, No Discharge, No Vision Changes Cardiovascular : No Chest Pain, No SOB, No Dyspnea on Exertion, No Orthopnea, No Edema, No Palpitations Respiratory : No Cough, No Sputum, No Wheezing, No Smoke Exposure, No Dyspnea Gastrointestinal : No Nausea, No Vomiting, No Diarrhea, No Constipation, No abdominal Pain, No Hematochezia, No Melena Genitourinary : no irregular bleeding, No Dysuria, No Urinary Frequency, No Hematuria, No Urinary Incontinence, No Urgency, complaining of left-sided Flank Pain, No Urinary Flow Changes, No Hesitancy Musculoskeletal : No joint pain, No Myalgias, No Joint Swelling Skin : No Skin Lesions, No rash Neuro : No Weakness, No Numbness, No Paresthesias, No Loss of Consciousness, No Dizziness, No Headache Psych : No Anxiety/Panic, No Depression, No SI/HI/AH/VH, No Social Issues, Heme/Lymph: No Bruising, No Bleeding,No Lymphadenopathy Endocrine : No Polyuria, No Polydipsia, No Temperature Intolerance [facility] Past Medical History Medical History Obesity Back pain Depression GERD (gastroesophageal reflux disease) Anxiety and depression Morbid obesity Anosmia Diarrhea Sore throat Respiratory tract infection due to COVID-19 virus Ovarian cyst Vitamin D deficiency Impaired fasting glucose History of migraine Surgical History H/O wisdom tooth extraction Family History Family History Father Diabetes mellitus Hypertension Mother Hypertension Brother No problems noted. Brother Multiple sclerosis Maternal Grandmother Diabetes mellitus Maternal Grandfather Diabetes mellitus Paternal Grandfather Diabetes mellitus Paternal Grandmother Diabetes mellitus Brother No problems noted. Social History Social History Household Members: None Household Members Other:: Husky dog Housing: Apartment Alcohol intake: current Alcohol intake frequency: holidays/special occasions only Alcohol type: beer, wine and hard liquor Patient Tobacco Use Status: Never used Tobacco Smoked in Last 30 Days: No e-Cigarette/Vaping Use: Currently Using Use of substances other than those prescribed or required for medical reasons: No Substance Use Type: Marijuana Advance Directives: No Advance Directives Information Provided: Yes Do you have a plan to hurt others: No Plan service: No Current occupational status: employed Current occupation: rt handed, [employer] Cognitive needs: No Hearing needs: No Vision needs: No Physical Exam ED Vital Signs: Vital Signs - 24 hr 05/21/24 03:32 05/21/24 05:48 05/21/24 07:08 Temperature 97.7 F 97.6 F 97.3 F Pulse Rate 87 66 80 Respiratory Rate 16 16 16 Blood Pressure 137/89 110/61 107/53 L Pulse Oximetry 100 96 98 Oxygen Delivery Method Room Air Room Air Room Air BMI result Body Mass Index 39.5 Const Other: Appearance: Alert. Oriented X3. No acute distress. Eyes: Pupils equal, round and reactive to light. ENT: Pharynx normal. Neck: Normal inspection. Neck supple. No lymph nodes noted. No crepitus CVS: Normal heart rate and rhythm. Pulses normal. Normal S1 and S2 Respiratory: No respiratory distress. Breath sounds normal. No Wheezing. No rales Abdomen: Soft and nontender. No rigidity. No distention. back: My flank pain on the left side. No significant CVA tenderness, no significant abdominal pain on palpation Skin: Skin warm and dry. Normal skin color. Normal skin turgor. Extremities: No lower extremity edema. No Lacerations. No Rash Neuro: Oriented X 3. No motor deficit. No sensory deficit. Moving all extremities. No slurred speech. CN 2 through 12 grossly intact Psych: calm, cooperative, normal affect Medical Decision Making Medical Decision Making [facility] Narrative: my interpretation of labs: No significant abnormality in patient's hematology, chemistry, LFTs and lipase. Urinalysis positive for blood. Patient just finishing her menstrual period. CT scan does not show any acute abnormalities. Patient was given a dose of IM ketorolac and Zofran p.o., patient feeling much better. Lab Data [facility] Lab Attestation statement: I reviewed the patient's lab results. 05/21/24 03:56 05/21/24 03:56 Labs: Lab Results 05/21/24 05/21/24 Range/Units 03:56 04:08 WBC 7.5 (4.8-10.8) X10*3/uL RBC 4.49 (4.20-5.50) X10*6/uL Hgb 11.8 L (12.0-16.0) g/dl Hct 36.1 L (37.0-47.0) % MCV 80.4 (80.0-98.0) fL MCH 26.3 L (27.0-33.0) pg MCHC 32.7 (31.0-35.0) g/dl RDW 14.2 (11.0-16.0) % Plt Count 305 (160-400) X10*3/uL MPV 10.3 (9.4-12.3) fL Immature Gran % (Auto) 0.5 H (0.0-0.4) % Neut % (Auto) 68.9 (45-73) % Lymph % (Auto) 20.7 (20-40) % Grant % (Auto) 9.0 (2-11) % Eos % (Auto) 0.5 (0-4) % Baso % (Auto) 0.4 (0-2) % Lymph # (Auto) 1.6 (1.2-4.9) X10*3/uL Grant # (Auto) 0.7 (0.1-1.2) X10*3/uL Eos # (Auto) 0.0 (0.0-0.4) X10*3/uL Baso # (Auto) 0.0 (0.0-0.2) X10*3/uL Abs Immat Gran (auto) 0.04 H (0.00-0.03) X10*3/uL Absolute Neuts (auto) 5.2 (2.0-8.3) x10*3/uL Absolute Nucleated RBC 0.000 (0.0-0.012) X10*3/uL Nucleated RBC % (auto) 0.0 (0.0-0.2) /100WBC Sodium 140 (135-145) mmol/L Potassium 3.5 (3.3-5.1) mmol/L Chloride 109 H (96-108) mmol/L Carbon Dioxide 21 L (22-29) mmol/L Anion Gap 14 (12-20) BUN 14 (9-16) mg/dL Creatinine 0.79 (0.5-1.4) mg/dL Estim Creat Clear Calc 121.4 Estimated GFR > 60 Random Glucose 137 H (60-115) mg/dL Calcium 9.1 (8.4-10.2) mg/dL Total Bilirubin 0.2 (0.0-1.0) mg/dL Direct Bilirubin < 0.2 (0.0-0.5) mg/dL AST 17 (5-31) U/L ALT 10 (0-31) U/L Alkaline Phosphatase 73 (39-117) U/L Total Protein 7.2 (6.5-8.0) g/dL Albumin 3.8 (3.5-5.0) g/dL Lipase 17 (8-78) U/L Urine Color Yellow Urine Appearance Cloudy Urine pH 5.5 (5.0-9.0) Ur Specific [place] 1.020 (1.005-1.025) Urine Protein 30 (1+) H (Neg-Trace) mg/dL Urine Glucose (UA) Negative (Negative) mg/dL Urine Ketones Trace (Negative) mg/dL Urine Blood Large (3+) H (Negative) Urine Nitrite Negative (Negative) Ur Leukocyte Esterase Trace H (Negative) Urine RBC >20 H (0-2) /HPF Urine WBC 0-5 (0-5) /HPF Ur Squamous Epith Cells 3-5 (0-2) /HPF Urine Bacteria None Seen (None Seen) Hyaline Casts 0-2 (0-2) /LPF Urine Test NEGATIVE (NEGATIVE) Independent Interpretation I performed an independent interpretation of an: CT Scan Radiology Impression Discussion of test interpretation with radiology: I have reviewed the radiologist's reading. Radiologist Impression: CT abdomen: No infiltrates are identified within the lung bases. No acute bony lesions. No renal or ureteral calculi identified. No hydronephrosis or perinephric stranding. Specifically, the right hydronephrosis and right ureteral calculus on prior study are no longer identified. Unenhanced liver, spleen, pancreas, gallbladder, and adrenal glands are unremarkable. Small bowel loops are of normal caliber. No free fluid or free air. CT pelvis: No bladder calculi. No colonic wall thickening or pericolonic inflammatory stranding. Appendix is normal. No free fluid or free air. Impression: No acute imaging explanation for the patient's symptoms. Specifically, no renal or ureteral calculi. Medications Administered Discontinued Medications Generic Name Dose Route Start Last Admin Trade Name Freq PRN Reason Stop Dose Admin Sodium Chloride 1,000 mls @ 999 mls/hr 05/21/24 05:06 05/21/24 05:15 Ns IVCONT 05/21/24 06:06 999 mls/hr .Q1H1M ONE Administration Ketorolac Tromethamine 60 mg 05/21/24 05:06 03/13/25 05:15 Ketorolac Tromethamine 60 Mg/2 Ml Vial IM 05/21/24 05:07 60 mg ONCE ONE Administration Ondansetron HCl 4 mg 05/21/24 05:06 05/21/24 05:15 Ondansetron Hcl 4 Mg/2 Ml Vial IVPUSH 05/21/24 05:07 4 mg ONCE ONE Administration Critical Care Time Critical Care Time Critical Care Time: Yes Total Critical Care Time: 50 Attestation: I have personally provided critical care time. Time includes review of lab data, radiology results, discussion with consultants, and monitoring for potential decompensation. Intervention performed as documented. Discharge Plan Discharge Clinical Impression: Acute flank pain Patient Disposition: Home, Self-Care Instructions: Flank Pain (ED) Additional Instructions: Please follow-up with your primary care physician tomorrow. If you have any worsening or new symptoms, please return to the emergency room or call 911 Prescriptions: New ketorolac 10 mg tablet 10 mg PO Q8H Qty: 12 0RF Rx Instructions: maximum total duration of 5 days from all oral, intranasal, or parenteral formulations ondansetron HCl 4 mg tablet 4 mg PO Q8H PRN (Reason: nausea and vomiting) Qty: 10 0RF acetaminophen 500 mg tablet 500 mg PO Q6H PRN (Reason: fever) Qty: 20 0RF No Action Wegovy 0.25 mg/0.5 mL pen injector 0.25 mg subcut QWEEK Qty: 2 0RF Rx Instructions: administer weeks 1 through 4 of therapy acetaminophen [Tylenol] 325 mg capsule 650 mg PO Q4H PRN (Reason: pain) Qty: 30 0RF sumatriptan succinate [Imitrex] 50 mg tablet See Rx Instructions PO .COMPLEX Qty: 30 3RF Rx Instructions: take 1 tab at onset of headache; if no relief may repeat 1 tab after at least 2 hrs; max = 4 tabs/24 hr PO nortriptyline 25 mg capsule 25 mg PO BEDTIME Qty: 90 3RF Stand Alone Forms: Work/School Release Print Language: Belarusian
[2024-05-21] MEDS: ondansetron HCL 4 MG/2 ML VIAL IVPUSH (05:15)
[2024-05-21] MEDS: 0.9 % Sodium Chloride 1,000 ML 999 ML IVCONT (05:15)
[2024-05-21] MEDS: Ketorolac Tromethamine 60 MG/2 ML VIAL IM (05:15)
[2024-05-21 05:48] VITALS: BP 110/61; PULSE 66; RESP 16; TEMP 36.4; O2SAT 96
[2024-05-21 07:08] VITALS: BP 107/53; PULSE 80; RESP 16; TEMP 36.3; O2SAT 98
[2024-05-21 08:19] VITALS: BP 107/53; PULSE 80; RESP 16; TEMP 36.3; O2SAT 98
== END 2024-05-21 08:19 | disposition home or self-care (01) ==
PROVIDERS: Emergency Provider Emergency Medicine; PCP Internal Medicine
DX: R10.9 Unspecified abdominal pain (principal); R11.2 Nausea with vomiting, unspecified; R10.2 Pelvic and perineal pain; R30.0 Dysuria; Z87.442 Personal history of urinary calculi; Z79.899 Other long term (current) drug therapy
CPT/HCPCS: 36415; 74176; 80053; 81001; 81025; 82248; 83690; 85025; 96372; 96374; 99284; J1885; J2405

== ENCOUNTER → 2024-05-21 05:06 | Outpatient (BNV) | payer OTHER, SELFPAY | PROVIDERS: Emergency Provider Emergency Medicine; PCP Internal Medicine; Visit Provider Radiology Diagnostic Radiology | DX: M54.50 Low back pain, unspecified (principal) | CPT/HCPCS: 74176 ==

== ENCOUNTER 2024-10-13 16:25 | Emergency (ER) | payer SELFPAY ==
--- NOTE | ~2024-10-13 | XR_ITS ---
EXAMINATION: XR CHEST CLINICAL INFORMATION: sob, mullins COMPARISON: Chest 02/27/2022 TECHNIQUE: 2 views of the chest were obtained. FINDINGS: No significant abnormality is noted involving the heart, lungs, mediastinum, bony thorax or soft tissues. XR/XR chest 2V IMPRESSION: Unremarkable chest examination. Electronically signed by: James Villa MD 10/13/2024 05:17 PM EDT RP
--- NOTE | ~2024-10-13 | CT_ITS ---
CLINICAL HISTORY: headache x3 days CT head without contrast Comparison: None provided Findings: No intra-axial mass, midline shift, hydrocephalus, or acute hemorrhage. No significant atrophy-like change or white matter disease. There is no sinus or mastoid fluid. The orbits are unremarkable. There is no acute fracture. IMPRESSION: 1. No acute intracranial findings. This document has been electronically signed by: Corie Napier MD on 10/13/2024 18:02:38
[2024-10-13 16:59] VITALS: BP 137/69; PULSE 78; RESP 16; TEMP 36.3; O2SAT 98; BMI 47.2
--- NOTE | 2024-10-13 16:59 | ED.HA ---
HPI - Headache General Chief Complaint: Headache Stated Complaint: Headache X 3days Time Seen by Provider: 10/13/24 21:46 Source: patient Mode of arrival: ambulatory Limitations: no limitations History of Present Illness ED Provider: HPI Narrative: Patient's history of frequent migraine headache comes here for headache which is mostly reasonable but for last 3-4 days tried her medication without much relief associated with nausea and photosensitivity no fever no chills Related Data Previous Rx's ?Medication ?Instructions ?Recorded acetaminophen 325 mg capsule 650 mg (2 x 325 mg) PO Q4H PRN 10/03/23 (Tylenol) pain #30 caps nortriptyline 25 mg capsule 25 mg PO BEDTIME #90 caps 12/17/23 sumatriptan succinate 50 mg tablet See Rx Instructions PO .COMPLEX 12/17/23 (Imitrex) #30 tabs Wegovy 0.25 mg/0.5 mL subcutaneous 0.25 mg (0.5 mL) subcut QWEEK #2 mL 01/22/24 pen injector (semaglutide (weight loss)) acetaminophen 500 mg tablet 500 mg PO Q6H PRN fever #20 tabs 05/21/24 ketorolac 10 mg tablet 10 mg PO Q8H #12 tabs 05/21/24 ondansetron HCl 4 mg tablet 4 mg PO Q8H PRN nausea and 05/21/24 vomiting #10 tabs brfitejmdu-dtkzhpbmtrxho-hlzqhngj 1 tab PO Q6H PRN haeadace #20 tabs 10/14/24 50 mg-325 mg-40 mg tablet Allergies Allergy/AdvReac Type Severity Reaction Status Date / Time symmetric Allergy Rash Uncoded 10/13/24 17:00 Review of Systems Review of Systems: Yes all other systems are reviewed and are negative [facility] Past Medical History Medical History Obesity Back pain Depression GERD (gastroesophageal reflux disease) Anxiety and depression Morbid obesity Anosmia Diarrhea Sore throat Respiratory tract infection due to COVID-19 virus Ovarian cyst Vitamin D deficiency Impaired fasting glucose History of migraine Surgical History H/O wisdom tooth extraction Family History Family History Father Diabetes mellitus Hypertension Mother Hypertension Brother No problems noted. Brother Multiple sclerosis Maternal Grandmother Diabetes mellitus Maternal Grandfather Diabetes mellitus Paternal Grandfather Diabetes mellitus Paternal Grandmother Diabetes mellitus Brother No problems noted. Social History Social History Household Members: None Household Members Other:: Husky dog Housing: Apartment Alcohol intake: current Alcohol intake frequency: holidays/special occasions only Alcohol type: beer, wine and hard liquor Patient Tobacco Use Status: Never used Tobacco Smoked in Last 30 Days: No e-Cigarette/Vaping Use: Currently Using Use of substances other than those prescribed or required for medical reasons: No Substance Use Type: Marijuana Advance Directives: No Advance Directives Information Provided: No Patient : No service: No Current occupational status: employed Current occupation: rt handed, [employer] Cognitive needs: No Hearing needs: No Vision needs: No Physical Exam Vital Signs: Vital Signs: Last Vital Signs Temp 98.4 F 10/14/24 00:33 Pulse 67 10/14/24 00:33 Resp 16 10/14/24 00:33 BP 118/81 10/14/24 00:33 Pulse Ox 96 10/14/24 00:33 O2 Del Method Room Air 10/14/24 00:33 BMI result Body Mass Index 47.2 Appearance: Alert. Oriented X3. No acute distress. Eyes: PERRLA, No Nystagmus ENT: Pharynx normal. Oral Mucosa moist nontender temporal artery Neck: Normal inspection. Neck supple. CVS: Normal heart rate and rhythm. Pulses normal. Respiratory: No respiratory distress. Equal air entry bilateral, no wheezing/rales/rhonchi Abdomen: Soft and nontender. Bowel sounds are present, no mass palpable, no CVA tenderness Skin: Skin warm and dry. Normal skin color. Normal skin turgor. Extremities: No lower extremity edema. No calf tenderness Neuro: Oriented X 3. No motor deficit. No sensory deficit.No cerebellar signs , cranial nerves II-XII intact Course Course Course Narrative: This is a Rapid Medical Examination (RME) performed by Gypsy Cazares PA-C in triage. Full HPI, ROS, assessment and treatment plan per primary provider in the Main ED. 29 yo female with history of migraine headaches, anxiety/depression, GERD, who presents to the ER for evaluation of headache for the last 3 days. she states the headache is generalized, includes her whole head. no relief with exedrine migraine and tylenol which usually works for her migraines. headache feels different than her usual migraines. also reports increased JACKSON for the last 2 weeks, especially when going up stairs which is also associated with chest tightness. went to hospital for behavioral medicine 1 month ago and reported there was fluid around her heart and was discharged with an inhaler. asking for CT scan of her head, has not head one in 15+ years. Plan: CT head, labs, EKG, CXR Medications Administered Discontinued Medications Generic Name Dose Route Start Last Admin Trade Name Abielq PRN Reason Stop Dose Admin Diphenhydramine HCl 25 mg 10/13/24 21:51 10/13/24 22:42 Diphenhydramine Hcl 50 Mg/Ml Vial IVPUSH 10/13/24 21:52 25 mg ONCE ONE Administration Sodium Chloride 1,000 mls @ 999 mls/hr 10/13/24 21:51 10/14/24 00:31 Ns IV 10/13/24 22:51 Infused .Q1H1M ONE Infusion Ketorolac Tromethamine 30 mg 10/13/24 21:51 10/13/24 22:42 Ketorolac Tromethamine 30 Mg/Ml Vial IVPUSH 10/13/24 21:52 30 mg ONCE ONE Administration Metoclopramide HCl 10 mg 10/13/24 21:52 10/13/24 22:42 Metoclopramide Hcl 10 Mg/2 Ml Vial IVPUSH 10/13/24 21:53 10 mg ONCE ONE Administration Medical Decision Making Medical Decision Making [facility] Narrative: Patient's migraine headache responded to migraine cocktail which was given in the ER feeling much better at the time of discharge will prescribe Fioricet for migraine headaches Differential Diagnosis Differential Diagnoses: The differential diagnosis associated with the presentation includes Migraine headache/tension headache/pseudotumor cerebri/sinusitis Lab Data [facility] Lab Attestation statement: I reviewed the patient's lab results. 10/13/24 17:20 10/13/24 17:20 Labs: Lab Results 10/13/24 Range/Units 17:20 WBC 6.4 (4.8-10.8) X10*3/uL RBC 4.70 (4.20-5.50) X10*6/uL Hgb 12.1 (12.0-16.0) g/dl Hct 37.2 (37.0-47.0) % MCV 79.1 L (80.0-98.0) fL MCH 25.7 L (27.0-33.0) pg MCHC 32.5 (31.0-35.0) g/dl RDW 14.5 (11.0-16.0) % Plt Count 331 (160-400) X10*3/uL MPV 10.9 (9.4-12.3) fL Immature Gran % (Auto) 0.6 H (0.0-0.4) % Neut % (Auto) 60.5 (45-73) % Lymph % (Auto) 29.5 (20-40) % [place] % (Auto) 8.2 (2-11) % Eos % (Auto) 0.9 (0-4) % Baso % (Auto) 0.3 (0-2) % Lymph # (Auto) 1.9 (1.2-4.9) X10*3/uL [place] # (Auto) 0.5 (0.1-1.2) X10*3/uL Eos # (Auto) 0.1 (0.0-0.4) X10*3/uL Baso # (Auto) 0.0 (0.0-0.2) X10*3/uL Abs Immat Gran (auto) 0.04 H (0.00-0.03) X10*3/uL Absolute Neuts (auto) 3.9 (2.0-8.3) x10*3/uL Absolute Nucleated RBC 0.000 (0.0-0.012) X10*3/uL Nucleated RBC % (auto) 0.0 (0.0-0.2) /100WBC PT 11.2 (10.9-12.4) SEC INR 1.0 (0.9-1.1) APTT 27.2 (26.7-34.1) SEC Sodium 141 (135-145) mmol/L Potassium 3.8 (3.3-5.1) mmol/L Chloride 110 H (96-108) mmol/L Carbon Dioxide 24 (22-29) mmol/L Anion Gap 11 L (12-20) BUN 9 (9-16) mg/dL Creatinine 0.68 (0.5-1.4) mg/dL Estim Creat Clear Calc 156.5 Estimated GFR > 60 Random Glucose 103 (60-115) mg/dL Calcium 9.5 (8.4-10.2) mg/dL Magnesium 1.8 (1.6-2.6) mg/dL Total Bilirubin 0.1 (0.0-1.0) mg/dL Direct Bilirubin < 0.2 (0.0-0.5) mg/dL AST 23 (5-31) U/L ALT 16 (0-31) U/L Alkaline Phosphatase 77 (39-117) U/L Troponin I High Sens < 2.7 (<3.5-17.0) ng/L B-Natriuretic Peptide 19 (<100) pg/mL Total Protein 7.0 (6.5-8.0) g/dL Albumin 3.9 (3.5-5.0) g/dL Influenza Type A (PCR) NEGATIVE (Negative) Influenza Type B (PCR) NEGATIVE (Negative) RSV RNA Qual (PCR) NEGATIVE (Negative) SARS-CoV-2 RNA (RT-PCR) NEGATIVE (Negative) Discharge Plan Discharge Clinical Impression: Migraine headache Patient Disposition: Home, Self-Care Instructions: Migraine Headache (ED) Additional Instructions: Rest at home Take Fioricet for headaches as prescribed Follow with your PCP Prescriptions: New gnjummzdsx-aoswwdhcpkpny-gchg 50-325-40 mg tablet 1 tab PO Q6H PRN (Reason: haeadace) Qty: 20 0RF No Action Wegovy 0.25 mg/0.5 mL pen injector 0.25 mg subcut QWEEK Qty: 2 0RF Rx Instructions: administer weeks 1 through 4 of therapy acetaminophen [Tylenol] 325 mg capsule 650 mg PO Q4H PRN (Reason: pain) Qty: 30 0RF ketorolac 10 mg tablet 10 mg PO Q8H Qty: 12 0RF Rx Instructions: maximum total duration of 5 days from all oral, intranasal, or parenteral formulations ondansetron HCl 4 mg tablet 4 mg PO Q8H PRN (Reason: nausea and vomiting) Qty: 10 0RF acetaminophen 500 mg tablet 500 mg PO Q6H PRN (Reason: fever) Qty: 20 0RF sumatriptan succinate [Imitrex] 50 mg tablet See Rx Instructions PO .COMPLEX Qty: 30 3RF Rx Instructions: take 1 tab at onset of headache; if no relief may repeat 1 tab after at least 2 hrs; max = 4 tabs/24 hr PO nortriptyline 25 mg capsule 25 mg PO BEDTIME Qty: 90 3RF Stand Alone Forms: Work/School Release Interventions: ED Discharge Assessment Last Done: 10/14/24 00:33 Discharge Date/Time: 10/14/24 00:33 Print Language: [place]
--- NOTE | 2024-10-13 17:01 | ECG_ITS ---
Test Reason : SOB Blood Pressure : */* mmHG Vent. Rate : 76 BPM Atrial Rate : 76 BPM P-R Int : 166 ms QRS Dur : 76 ms QT Int : 384 ms P-R-T Axes : 34 7 6 degrees QTcB Int : 432 ms Normal sinus rhythm Minimal voltage criteria for LVH, may be normal variant ( R in aVL ) Cannot rule out Anterior infarct , age undetermined Abnormal ECG When compared with ECG of 27-Feb-2022 12:55, Nonspecific T wave abnormality now evident in Anterior leads Referred By: Radha Cazares Electronically Signed By: MANJINDER LANDON
[2024-10-13 17:25] LABS: MANUAL DIFF FLAG NO
[2024-10-13 17:27] LABS: Hematocrit 37.2 % (37.0-47.0); Hemoglobin 12.1 g/dl (12.0-16.0); Imm Gran Abs Auto 0.04 X10*3/uL (0.00-0.03); Imm Gran Pct Auto 0.6 % (0.0-0.4); Lymphocytes Absolute Auto 1.9 X10*3/uL (1.2-4.9); Mean Corpuscular HGB Conc 32.5 g/dl (31.0-35.0); Mean Corpuscular Hemoglobin 25.7 pg (27.0-33.0); Mean Corpuscular Volume 79.1 fL (80.0-98.0); NRBC Abs Auto 0.000 X10*3/uL (0.0-0.012); NRBC Pct Auto 0.0 /100WBC (0.0-0.2); Platelet Count 331 X10*3/uL (160-400); Red Blood Count 4.70 X10*6/uL (4.20-5.50); White Blood Count 6.4 X10*3/uL (4.8-10.8)
[2024-10-13 17:40] LABS: INTERNATIONAL NORM RATIO 1.0 (0.9-1.1); Prothrombin Time 11.2 SEC (10.9-12.4)
[2024-10-13 17:42] LABS: Partial Thromboplastin Time 27.2 SEC (26.7-34.1)
[2024-10-13 17:43] LABS: Alanine Aminotransferase 16 U/L (0-31); Albumin Level 3.9 g/dL (3.5-5.0); Alkaline Phosphatase 77 U/L (39-117); Anion Gap 11 (12-20); Aspartate Amino Transferase 23 U/L (5-31); Blood Urea Nitrogen 9 mg/dL (9-16); Calcium 9.5 mg/dL (8.4-10.2); Carbon Dioxide 24 mmol/L (22-29); Chloride 110 mmol/L (96-108); Creatinine Clr Calc Pharmacy 156.5; Estimated Glomerular Filt Rate > 60; Magnesium 1.8 mg/dL (1.6-2.6); Potassium 3.8 mmol/L (3.3-5.1); Sodium 141 mmol/L (135-145); Total Protein 7.0 g/dL (6.5-8.0)
[2024-10-13 17:48] LABS: B Type Natriuretic Peptide 19 pg/mL (<100)
[2024-10-13 17:50] LABS: Troponin-I High Sensitivity < 2.7 ng/L (<3.5-17.0)
[2024-10-13 18:03] LABS: Resp Syncy Virus RNA Qual PCR NEGATIVE (Negative); SARS COV2 PCR INHOUSE NEGATIVE (Negative)
[2024-10-13 22:47] VITALS: BP 135/82; PULSE 62; RESP 16; TEMP 36.8; O2SAT 99
[2024-10-14 00:29] VITALS: BP 118/81; PULSE 67; RESP 16; TEMP 36.9; O2SAT 96
[2024-10-14 00:33] VITALS: BP 118/81; PULSE 67; RESP 16; TEMP 36.9; O2SAT 96
== END 2024-10-14 00:33 | disposition home or self-care (01) ==
PROVIDERS: Physician Assistant; Emergency Provider Internal Medicine
DX: G43.909 Migraine, unspecified, not intractable, without status migrainosus (principal); Z03.818 Encounter for observation for suspected exposure to other biological agents ruled out; K21.9 Gastro-esophageal reflux disease without esophagitis; Z79.899 Other long term (current) drug therapy
CPT/HCPCS: 36415; 70450; 71046; 80048; 80076; 83735; 83880; 84484; 85025; 85610; 85730; 87637; 93005; 96361; 96374; 96375; 99284; J1200; J1885; J2765

== ENCOUNTER → 2024-10-13 17:01 | Outpatient (BNV) | payer SELFPAY | PROVIDERS: Visit Provider Radiology Diagnostic Radiology | DX: R51.9 Headache, unspecified (principal); R06.02 Shortness of breath | CPT/HCPCS: 70450; 71046 ==

== ENCOUNTER → 2024-10-13 17:01 | Outpatient (BNV) | payer SELFPAY | PROVIDERS: Emergency Provider Internal Medicine; Visit Provider Internal Medicine | DX: R94.31 Abnormal electrocardiogram [ECG] [EKG] (principal); R06.02 Shortness of breath | CPT/HCPCS: 93010 ==